=== PATIENT | female | born 1990 | race Caucasian/White ===

== ENCOUNTER 2017-04-26 07:10 | Emergency (ER) | payer SELFPAY ==
[2017-04-26 07:25] VITALS: BP 112/76
[2017-04-26] MEDS ORDERED: HYDROmorphone 0.5 MG/0.5 ML Syringe IVPUSH ONE (07:42)
[2017-04-26] MEDS ORDERED: Sodium Chloride 0.9% 10 ML Syringe FLUSH PRN (07:42)
[2017-04-26] MEDS ORDERED: Ondansetron 4 MG/2 ML SDV IVPUSH ONE (07:42)
[2017-04-26] MEDS ORDERED: Sodium Chloride 0.9% 1,000 ML IV SCH (07:45)
--- NOTE | 2017-04-26 07:59 | EDM.PDOC ---
ED HPI GENERAL MEDICAL PROBLEM - General Chief Complaint: Chest Pain Stated Complaint: CHEST PAIN/EARLY Time Seen by Provider: 04/26/17 07:28 Source of Information: Reports: Patient, RN Notes Reviewed - History of Present Illness INITIAL COMMENTS - FREE TEXT/NARRATIVE: 26-year-old female comes in with abdominal pain nausea vomiting. This started late last evening and this continued to the whole night. She has a lot of generalized abdominal discomfort with this with superimposed cramps. Now it is mostly dry heaves but she still does feel very nauseated. She feels weak, lightheaded dizzy, states her hands feel numb and tingly. She states she felt totally fine yesterday, no discomfort no nausea vomiting and was eating and drinking normally. She believes that she is . She apparently had a positive test last Monday just 5 days ago. She has an upcoming OB appointment. No vaginal bleeding or spotting, 2 para 0. Epigastric Pain Score (Numeric/FACES): 8 - Related Data Allergies Allergy/AdvReac Type Severity Reaction Status Date / Time codeine Allergy Hives Verified 04/26/17 07:25 Home Meds: Home Meds Vit 90/Iron Fum/Folic [ Formula] 1 tab PO DAILY 08/16/15 [ History] Past Medical History HEENT History: Reports: None Gastrointestinal History: Reports: GERD, Helicobacter Pylori, Hiatal Hernia MARKETING SERVICES COORDINATOR History: Reports: Psychiatric History: Reports: Anxiety, Depression - Past Surgical History HEENT Surgical History: Reports: Eye Surgery Social & Family History - Family History Family Medical History: Noncontributory Respiratory: Reports: None Psychiatric: Reports: Depression Dermatologic: Reports: None - Tobacco Use Smoking Status *Q: Current Every Day Smoker Years of Tobacco use: 10 Packs/Tins Daily: 0.1 Used Tobacco, but Quit: No Month Tobacco Last Used: TODAY 0400 Second Hand Smoke Exposure: Yes - Caffeine Use Caffeine Use: Reports: Coffee, Soda - Alcohol Use Days Per Week of Alcohol Use: 0 - Recreational Drug Use Recreational Drug Use: No ED ROS GENERAL - Review of Systems Review Of Systems: See Below Constitutional: Denies: Fever, Chills, Diaphoresis HEENT: Denies: Sinus Problem, Throat Pain Respiratory: Denies: Shortness of Breath, Wheezing, Pleuritic Chest Pain Cardiovascular: Denies: Chest Pain GI/Abdominal: Reports: Abdominal Pain (Generalized), Nausea, Vomiting. Denies: Diarrhea : Reports: No Symptoms Musculoskeletal: Reports: No Symptoms Skin: Reports: No Symptoms Neurological: Reports: Dizziness, Numbness, Tingling. Denies: Trouble Speaking ED EXAM, GI/ABD - Physical Exam Exam: See Below General Appearance: Alert, Anxious, Moderate Distress Eyes: Bilateral: Normal Appearance Nose: Normal Inspection Throat/Mouth: Normal Inspection, Normal Oropharynx Head: No: Facial Swelling Neck: Supple, Full Range of Motion Respiratory/Chest: No Respiratory Distress, Lungs Clear, Normal Breath Sounds Cardiovascular: Regular Rate, Rhythm GI/Abdominal Exam: Soft, Tender (Moderate diffuse tenderness). No: Guarding, Rebound Back Exam: No: CVA Tenderness (L), CVA Tenderness (R) Extremities: Normal Inspection, Normal Range of Motion. No: Pedal Edema, Leg Pain Neurological: Alert, Oriented, No Motor/Sensory Deficits Skin Exam: Warm, Dry, Normal Color EKG INTERPRETATION EKG Date: 04/26/17 Rhythm: Other (Sinus tachycardia, rate 109) P-Wave: Present QRS: Normal ST-T: Normal Course - Vital Signs Last Recorded V/S: Last Vital Signs Temp 97.4 F 04/26/17 07:21 Pulse 97 04/26/17 07:21 Resp 16 04/26/17 07:21 BP 112/76 04/26/17 07:21 Pulse Ox 100 04/26/17 07:21 - Orders/Labs/Meds Labs: Laboratory Tests 04/26/17 04/26/17 04/26/17 Range/Units 08:00 08:12 08:12 WBC 17.18 H (3.98-10.04) K/mm3 RBC 4.65 (3.98-5.22) M/mm3 Hgb 10.1 L (11.2-15.7) gm/L Hct 32.0 L (34.1-44.9) % MCV 68.8 L (79.4-94.8) fl MCH 21.7 L (25.6-32.2) pg MCHC 31.6 L (32.2-35.5) g/dl RDW Std Deviation 48.0 H (36.4-46.3) fL Plt Count 611 H (182-369) K/mm3 MPV 9.7 (9.4-12.3) fl Neut % (Auto) 91.5 H (34.0-71.1) % Lymph % (Auto) 5.2 L (19.3-51.7) % [place] % (Auto) 2.9 L (4.7-12.5) % Eos % (Auto) 0 L (0.7-5.8) Baso % (Auto) 0.2 (0.1-1.2) % Neut # (Auto) 15.71 H (1.56-6.13) K/mm3 Lymph # (Auto) 0.90 L (1.18-3.74) K/mm3 [place] # (Auto) 0.50 H (0.24-0.36) K/mm3 Eos # (Auto) 0.00 L (0.04-0.36) K/mm3 Baso # (Auto) 0.03 (0.01-0.08) K/mm3 Manual Slide Review Abnormal smear Sodium 137 (136-145) mEq/L Potassium 3.3 L (3.5-5.1) mEq/L Chloride 103 (98-107) mEq/L Carbon Dioxide 20 L (21-32) mEq/L Anion Gap 17.3 H (5-15) BUN 10 (7-18) mg/dL Creatinine 0.6 (0.55-1.02) mg/dL Est Cr Clr Drug Dosing 112.90 mL/min Estimated GFR (MDRD) > 60 (>60) mL/min BUN/Creatinine Ratio 16.7 (14-18) Glucose 113 H (74-106) mg/dL Calcium 9.2 (8.5-10.1) mg/dL Total Bilirubin 0.6 (0.2-1.0) mg/dL AST 20 (15-37) U/L ALT 31 (14-59) U/L Alkaline Phosphatase 80 (46-116) U/L Total Protein 7.9 (6.4-8.2) g/dl Albumin 4.2 (3.4-5.0) g/dl Globulin 3.7 gm/dL Albumin/Globulin Ratio 1.1 (1-2) HCG, Qual Positive H (NEGATIVE) Meds: Medications Discontinued Medications Generic Name Dose Route Start Last Admin Trade Name Freq PRN Reason Stop Dose Admin Hydromorphone HCl 0.25 mg 01/10/18 07:42 04/26/17 08:25 Dilaudid IVPUSH 04/26/17 07:43 0.25 mg ONETIME ONE Administration Sodium Chloride 1,000 mls @ 999 mls/hr 04/26/17 07:45 04/26/17 08:23 Normal Saline IV 999 mls/hr ONETIME JOHN Administration Ondansetron HCl 4 mg 04/26/17 07:42 04/26/17 08:24 Zofran IVPUSH 04/26/17 07:43 4 mg ONETIME ONE Administration Sodium Chloride 10 ml 04/26/17 07:42 04/26/17 08:27 Saline Flush FLUSH 10 ml ASDIRECTED PRN Administration Keep Vein Open - Re-Assessments/Exams Free Text/Narrative Re-Assessment/Exam: 04/26/17 10:02 Feeling much better after 1 L IV fluid, Zofran 4 mg IV, Dilaudid 0.25 mg IV. He is no longer nauseated or vomiting. Abdominal pain is about gone, she has been drinking some small amounts of fluid and so far keeping that down, she wants to go home, discharge instructions as documented Departure - Departure Time of Disposition: 10:03 Disposition: Home, Self-Care 01 Condition: Fair Clinical Impression: Abdominal pain Qualifiers: Abdominal location: generalized Qualified Code(s): R10.84 - Generalized abdominal pain Vomiting Qualifiers: Vomiting type: unspecified Vomiting Intractability: non-intractable Nausea presence: with nausea Qualified Code(s): R11.2 - Nausea with vomiting, unspecified - Discharge Information Instructions: Abdominal Pain, Adult, [id number] Referrals: PCP,None [Primary Care Provider] - Forms: ED Department Discharge Additional Instructions: Clear liquids until this midafternoon, then very careful bland diet in addition to continued clear liquids as tolerated, avoid milk and dairy products for 2 days. I'll look clinic as needed, return to ED if symptoms worsening in any way.
== END 2017-04-26 10:15 | disposition home or self-care (01) ==
LOC: JD.ED 07:10
DX: R10.84 Generalized abdominal pain (principal); R11.2 Nausea with vomiting, unspecified; F17.210 Nicotine dependence, cigarettes, uncomplicated; Z88.5 Allergy status to narcotic agent
CPT/HCPCS: 36415; 80053; 84703; 85025; 96361; 96374; 96375; 99285; J1170; J2405; J7040; J7050; 93010; 99284

== ENCOUNTER 2017-07-12 12:49 | Day surgery (SDC) | payer SELFPAY ==
[2017-07-12] MEDS ORDERED: Sodium Chloride 0.9% 1,000 ML IV ONE (13:31)
[2017-07-12] MEDS ORDERED: Famotidine 20 MG/2 ML SDV IVPUSH ONE (13:31)
[2017-07-12] MEDS ORDERED: Sodium Chloride 0.9% 10 ML Syringe FLUSH PRN (13:31)
[2017-07-12] MEDS ORDERED: Metoclopramide 10 MG/2 ML SDV IVPUSH ONE ×2 (13:31→16:42)
--- NOTE | 2017-07-12 13:39 | EDM.PDOC ---
ED HPI GENERAL MEDICAL PROBLEM - General Chief Complaint: ADMINISTRATIVE SERVICES MANAGER Problem Stated Complaint: 16 WEEKS PREG ABDOMINAL PAIN Time Seen by Provider: 07/12/17 13:14 Source of Information: Reports: Patient History Limitations: Reports: No Limitations - History of Present Illness INITIAL COMMENTS - FREE TEXT/NARRATIVE: 26-year-old female presents for evaluation and treatment of abdominal pain. Reports that the pain started today. States that is significant, rates as a 10 out of 10. Reports this is a constant pain. Reports associated symptoms of nausea and vomiting buts states this is not worse than normal. No fevers, chills, cough, dysuria or any vaginal bleeding. Last BM was this morning. Patient is approximately 16 weeks . She is , she reports lost her previous to a placental abruption. She sees Dr. Scruggs as her OB/ BUSINESS MANAGEMENT ANALYST. Last visit was last week. She she has had an ultrasound done thus far everything okay. She is currently on Zofran for nausea and vomiting. Last dose was at 9 AM. She is a current every day smoker. Currently smokes about 4 cigarettes per day. Treatments CORK TILE FLOOR LAYER: Reports: Other (see below) Other Treatments CORK TILE FLOOR LAYER: zofran Abdominal Pain Score (Numeric/FACES): 10 - Related Data Allergies Allergy/AdvReac Type Severity Reaction Status Date / Time codeine Allergy Hives Verified 07/12/17 17:35 pollen extracts Allergy Other Verified 07/12/17 17:35 Home Meds: Home Meds RX: Vit 90/Iron Fum/Folic [ Formula] 1 tab PO DAILY 08/16/15 [ History] Ondansetron HCl [Zofran] 4 mg PO ASDIRECTED 07/12/17 [History] Past Medical History HEENT History: Reports: None Gastrointestinal History: Reports: GERD, Helicobacter Pylori, Hiatal Hernia ADMINISTRATIVE SERVICES MANAGER History: Reports: , Other (See Below) Other OB/BYN History: placental abruption Psychiatric History: Reports: Anxiety, Depression - Past Surgical History HEENT Surgical History: Reports: Eye Surgery Social & Family History - Family History Family Medical History: Noncontributory Respiratory: Reports: None Psychiatric: Reports: Depression Dermatologic: Reports: None - Tobacco Use Smoking Status *Q: Current Every Day Smoker Years of Tobacco use: 5 Packs/Tins Daily: 0.2 Used Tobacco, but Quit: No Month/Year Tobacco Last Used: TODAY 0400 Second Hand Smoke Exposure: Yes - Caffeine Use Caffeine Use: Reports: Coffee, Soda - Alcohol Use Days Per Week of Alcohol Use: 0 - Recreational Drug Use Recreational Drug Use: No ED ROS GENERAL - Review of Systems Review Of Systems: See Below Constitutional: Reports: Decreased Appetite. Denies: Fever, Chills HEENT: Denies: Ear Pain, Throat Pain Respiratory: Denies: Cough GI/Abdominal: Reports: Abdominal Pain (generalized), Decreased Appetite, Nausea , Vomiting. Denies: Diarrhea : Reports: Other (no vaginal bleeding). Denies: Dysuria ED EXAM - Physical Exam Exam: See Below Exam Limited By: No Limitations General Appearance: Alert, WD/WN, Moderate Distress, Thin Respiratory/Chest: No Respiratory Distress, Lungs Clear, Normal Breath Sounds Cardiovascular: Normal Peripheral Pulses, Regular Rate, Rhythm, No Murmur GI/Abdominal Exam: Normal Bowel Sounds, Soft, Guarding, Tender (generalized), Other (unable to fully assess due to significant pain) Heart Tones: Present Heart Tones per Min: 147 Neurological: Alert, Oriented, Normal Cognition Psychiatric: Normal Affect, Normal Mood Skin Exam: Warm, Dry, Normal Color Course - Vital Signs Last Recorded V/S: Last Vital Signs Temp 37.0 C 07/12/17 16:45 Pulse 95 07/12/17 16:45 Resp 18 07/12/17 17:29 BP 111/72 07/12/17 16:45 Pulse Ox 100 07/12/17 17:29 - Orders/Labs/Meds Orders: Active Orders 24 hr Category Date Time Status Heart Tones [RC] ASDIRECTED Care 07/12/17 13:31 Active Peripheral IV Care [RC] . DIRECTED Care 07/12/17 13:33 Active UA W/MICROSCOPIC [URIN] Stat Lab 07/12/17 15:50 Ordered Sodium Chloride 0.9% [Saline Flush] Med 07/12/17 13:31 Active 10 ml FLUSH ASDIRECTED PRN Peripheral IV Insertion Adult [OM.PC] Routine Oth 07/12/17 13:31 Ordered Schedule Procedure [COMM] Stat Oth 07/12/17 17:36 Ordered Medication Orders Sodium Chloride (Saline Flush) 10 ml FLUSH ASDIRECTED PRN PRN Reason: Keep Vein Open Last Admin: 07/12/17 14:10 Dose: 10 ml Labs: Laboratory Tests 07/12/17 07/12/17 07/12/17 Range/Units 13:10 13:10 13:10 WBC 19.28 H (3.98-10.04) K/mm3 RBC 4.64 (3.98-5.22) M/mm3 Hgb 10.9 L (11.2-15.7) gm/L Hct 33.6 L (34.1-44.9) % MCV 72.4 L (79.4-94.8) fl MCH 23.5 L (25.6-32.2) pg MCHC 32.4 (32.2-35.5) g/dl RDW Std Deviation 52.0 H (36.4-46.3) fL Plt Count 504 H (182-369) K/mm3 MPV 9.6 (9.4-12.3) fl Neut % (Auto) 86.7 H (34.0-71.1) % Lymph % (Auto) 7.5 L (19.3-51.7) % Carbon % (Auto) 5.2 (4.7-12.5) % Eos % (Auto) 0.2 L (0.7-5.8) Baso % (Auto) 0.1 (0.1-1.2) % Neut # (Auto) 16.71 H (1.56-6.13) K/mm3 Lymph # (Auto) 1.45 (1.18-3.74) K/mm3 Carbon # (Auto) 1.01 H (0.24-0.36) K/mm3 Eos # (Auto) 0.04 (0.04-0.36) K/mm3 Baso # (Auto) 0.02 (0.01-0.08) K/mm3 Manual Slide Review Abnormal smear Sodium 135 L (136-145) mEq/L Potassium 3.0 L (3.5-5.1) mEq/L Chloride 100 (98-107) mEq/L Carbon Dioxide 21 (21-32) mEq/L Anion Gap 17.0 H (5-15) BUN 9 (7-18) mg/dL Creatinine 0.5 L (0.55-1.02) mg/dL Est Cr Clr Drug Dosing 136.71 mL/min Estimated GFR (MDRD) > 60 (>60) mL/min BUN/Creatinine Ratio 18.0 (14-18) Glucose 93 (74-106) mg/dL Calcium 9.0 (8.5-10.1) mg/dL Total Bilirubin 0.3 (0.2-1.0) mg/dL AST 16 (15-37) U/L ALT 15 (14-59) U/L Alkaline Phosphatase 76 (46-116) U/L C-Reactive Protein 0.4 (<1.0) mg/dL Total Protein 7.7 (6.4-8.2) g/dl Albumin 3.7 (3.4-5.0) g/dl Globulin 4.0 gm/dL Albumin/Globulin Ratio 0.9 L (1-2) Urine Color (Yellow) Urine Appearance (Clear) Urine pH (5.0-8.0) Ur Specific [place] (1.005-1.030) Urine Protein (Negative) Urine Glucose (UA) (Negative) Urine Ketones (Negative) Urine Occult Blood (Negative) Urine Nitrite (Negative) Urine Bilirubin (Negative) Urine Urobilinogen (0.2-1.0) Ur Leukocyte Esterase (Negative) Urine RBC (0-5) /hpf Urine WBC (0-5) /hpf Ur Epithelial Cells (0-5) /hpf Amorphous Sediment (NOT SEEN) /hpf Urine Bacteria (FEW) /hpf Urine Mucus (FEW) /hpf 07/12/17 Range/Units 15:50 WBC (3.98-10.04) K/mm3 RBC (3.98-5.22) M/mm3 Hgb (11.2-15.7) gm/L Hct (34.1-44.9) % MCV (79.4-94.8) fl MCH (25.6-32.2) pg MCHC (32.2-35.5) g/dl RDW Std Deviation (36.4-46.3) fL Plt Count (182-369) K/mm3 MPV (9.4-12.3) fl Neut % (Auto) (34.0-71.1) % Lymph % (Auto) (19.3-51.7) % Carbon % (Auto) (4.7-12.5) % Eos % (Auto) (0.7-5.8) Baso % (Auto) (0.1-1.2) % Neut # (Auto) (1.56-6.13) K/mm3 Lymph # (Auto) (1.18-3.74) K/mm3 Carbon # (Auto) (0.24-0.36) K/mm3 Eos # (Auto) (0.04-0.36) K/mm3 Baso # (Auto) (0.01-0.08) K/mm3 Manual Slide Review Sodium (136-145) mEq/L Potassium (3.5-5.1) mEq/L Chloride (98-107) mEq/L Carbon Dioxide (21-32) mEq/L Anion Gap (5-15) BUN (7-18) mg/dL Creatinine (0.55-1.02) mg/dL Est Cr Clr Drug Dosing mL/min Estimated GFR (MDRD) (>60) mL/min BUN/Creatinine Ratio (14-18) Glucose (74-106) mg/dL Calcium (8.5-10.1) mg/dL Total Bilirubin (0.2-1.0) mg/dL AST (15-37) U/L ALT (14-59) U/L Alkaline Phosphatase (46-116) U/L C-Reactive Protein (<1.0) mg/dL Total Protein (6.4-8.2) g/dl Albumin (3.4-5.0) g/dl Globulin gm/dL Albumin/Globulin Ratio (1-2) Urine Color Yellow (Yellow) Urine Appearance Slt cloudy H (Clear) Urine pH 7.0 (5.0-8.0) Ur Specific [place] 1.025 (1.005-1.030) Urine Protein 1+ H (Negative) Urine Glucose (UA) Negative (Negative) Urine Ketones 3+ H (Negative) Urine Occult Blood Negative (Negative) Urine Nitrite Negative (Negative) Urine Bilirubin Negative (Negative) Urine Urobilinogen 0.2 (0.2-1.0) Ur Leukocyte Esterase Negative (Negative) Urine RBC Not seen (0-5) /hpf Urine WBC 0-5 (0-5) /hpf Ur Epithelial Cells 0-5 (0-5) /hpf Amorphous Sediment Many H (NOT SEEN) /hpf Urine Bacteria Few (FEW) /hpf Urine Mucus Few (FEW) /hpf Meds: Medications Generic Name Dose Route Start Last Admin Trade Name Hiram PRN Reason Stop Dose Admin Sodium Chloride 10 ml 07/12/17 13:31 07/12/17 14:10 Saline Flush FLUSH 10 ml ASDIRECTED PRN Administration Keep Vein Open Discontinued Medications Generic Name Dose Route Start Last Admin Trade Name Hiram PRN Reason Stop Dose Admin Bupivacaine HCl Confirm 07/12/17 17:14 Marcaine 0.5% Administered 07/12/17 17:15 Dose 30 ml .ROUTE .STK-MED ONE Citric Acid/Sodium Citrate 30 ml 07/12/17 17:32 Bicitra Solution PO 07/12/17 17:33 ONETIME ONE Famotidine 20 mg 07/12/17 13:31 07/12/17 14:09 Pepcid IVPUSH 07/12/17 13:32 20 mg ONETIME ONE Administration Hydromorphone HCl 0.5 mg 07/12/17 14:26 07/12/17 14:34 Dilaudid IVPUSH 07/12/17 14:27 0.5 mg ONETIME ONE Administration Hydromorphone HCl 0.5 mg 07/12/17 17:16 07/12/17 17:41 Dilaudid IVPUSH 07/12/17 17:17 0.5 mg ONETIME ONE Administration Sodium Chloride 1,000 mls @ 999 mls/hr 07/12/17 13:31 07/12/17 14:06 Normal Saline IV 07/12/17 14:31 999 mls/hr ONETIME ONE Administration Cefoxitin Sodium 1 gm/ Premix 50 mls @ 100 mls/hr 07/12/17 16:39 07/12/17 16: 52 IV 07/12/17 17:08 100 mls/hr ONETIME ONE Administration Metoclopramide HCl 5 mg 07/12/17 13:31 07/12/17 14:07 Reglan IVPUSH 07/12/17 13:32 5 mg ONETIME ONE Administration Metoclopramide HCl 5 mg 07/12/17 16:42 07/12/17 16:52 Reglan IVPUSH 07/12/17 16:43 5 mg ONETIME ONE Administration Potassium Chloride 20 meq 07/12/17 14:42 07/12/17 14:50 Klor-Con M20 PO 07/12/17 14:43 20 meq ONETIME ONE Administration - Radiology Interpretation Free Text/Narrative:: Limited obstetrical ultrasound: Multiple real-time images were obtained. Comparison: No previous study for current . Dates: LMP: ? Current ultrasound: [facility] 12/20/17, gestational age 17 weeks 0 days presentation: Mobile Placenta: Anterior with no findings of placenta previa or abruption. Amniotic fluid: DOMINIQUE 11.4 cm Measurements: BPD: 3.66 cm - 17 weeks 2 days Head circumference: 13.22 cm - 16 weeks 6 days Abdominal circumference: 11.33 cm - 17 weeks 1 day Femur length: 2.19 cm - 16 weeks 4 days Estimated weight: 172 g (0 lbs. 6 oz.), estimated weight at the 34th percentile for age by current ultrasound Heart rate: 152 BPM Cervical length: 3.0 cm Maternal ovaries: Within normal limits Impression: 1. Single intrauterine fetus currently mobile in presentation. Dates as noted above. 2. No complicating process is identified by ultrasound at this time. Limited abdominal ultrasound: Multiple real-time images of the right lower abdomen were obtained. Findings: Hypoechoic tubular structure is seen within the right lower abdomen. This measures about 1.1 cm in size and is suspicious for a dilated appendix. Impression: 1. Possible dilated appendix. Findings suggest appendicitis, please confirm that clinical findings correlate. - Re-Assessments/Exams Free Text/Narrative Re-Assessment/Exam: 07/12/17 17:48 The patient's pain resolved with the Dilaudid. I was unable to better examine the patient. She does have rebound tenderness. Identifies pain in the bilateral pelvis with radiation up into the right lower quadrant. She reports a decreased appetite. States that movement worsens her abdominal pain. I then asked ultrasound in addition to her OB ultrasound to evaluate her appendix. Ultrasound report came back concerning for appendicitis. I discussed the case with Dr. Hernandez, surgery saloonkeeper. Asked OB come and evaluate her before he takes her to the OR. Plan will be to take her to the OR for an appendectomy. Asked that we give 1 g cefoxiti. Last intake was around 7 AM. I attempted to contact the patient's ADMINISTRATIVE SERVICES MANAGER provider, Dr. Scruggs, however is unable to get a hold of them. I then discussed the case with Dr. Mckeon, OB saloonkeeper. She'll come to the ER see the patient. Departure - Departure Time of Disposition: 17:52 Disposition: DC/Tfer to Critical Access 66 Condition: Fair Clinical Impression: Appendicitis, - Discharge Information Referrals: Jethro Scruggs MD [Primary Care Provider] - Forms: ED Department Discharge Additional Instructions: Patient to be taken to the OR for an appendectomy by Dr. Hernandez. Patient has been seen and evaluated by Dr. Gibbs, OB. - My Orders Last 24 Hours: My Active Orders 07/12/17 13:31 Heart Tones [RC] ASDIRECTED Sodium Chloride 0.9% [Saline Flush] 10 ml FLUSH ASDIRECTED PRN Peripheral IV Insertion Adult [OM.PC] Routine 07/12/17 13:33 Peripheral IV Care [RC] . DIRECTED 07/12/17 15:50 UA W/MICROSCOPIC [URIN] Stat - Assessment/Plan Last 24 Hours: My Active Orders 07/12/17 13:31 Heart Tones [RC] ASDIRECTED Sodium Chloride 0.9% [Saline Flush] 10 ml FLUSH ASDIRECTED PRN Peripheral IV Insertion Adult [OM.PC] Routine 07/12/17 13:33 Peripheral IV Care [RC] . DIRECTED 07/12/17 15:50 UA W/MICROSCOPIC [URIN] Stat
[2017-07-12] MEDS ORDERED: HYDROmorphone 0.5 MG/0.5 ML SYRINGE IVPUSH ONE ×2 (14:26→17:16)
[2017-07-12] MEDS ORDERED: Potassium Chloride 20 MEQ Tab.ER PO ONE (14:42)
--- NOTE | 2017-07-12 16:15 | US ---
Limited obstetrical ultrasound: Multiple real-time images were obtained. Comparison: No previous study for current . Dates: LMP: ? Current ultrasound: [facility] 12/20/17, gestational age 17 weeks 0 days presentation: Mobile Placenta: Anterior with no findings of placenta previa or abruption. Amniotic fluid: DOMINIQUE 11.4 cm Measurements: BPD: 3.66 cm - 17 weeks 2 days Head circumference: 13.22 cm - 16 weeks 6 days Abdominal circumference: 11.33 cm - 17 weeks 1 day Femur length: 2.19 cm - 16 weeks 4 days Estimated weight: 172 g (0 lbs. 6 oz.), estimated weight at the 34th percentile for age by current ultrasound Heart rate: 152 BPM Cervical length: 3.0 cm Maternal ovaries: Within normal limits Impression: 1. Single intrauterine fetus currently mobile in presentation. Dates as noted above. 2. No complicating process is identified by ultrasound at this time. Diagnostic code #1
--- NOTE | 2017-07-12 16:17 | US ---
Limited abdominal ultrasound: Multiple real-time images of the right lower abdomen were obtained. Findings: Hypoechoic tubular structure is seen within the right lower abdomen. This measures about 1.1 cm in size and is suspicious for a dilated appendix. Impression: 1. Possible dilated appendix. Findings suggest appendicitis, please confirm that clinical findings correlate. Diagnostic code #5
[2017-07-12] MEDS ORDERED: cefOXitin 1 GM in Premix Bag 1 BAG IV ONE (16:39)
[2017-07-12] MEDS ORDERED: Bupivacaine 0.5% 30 ML SDV ONE (17:14)
--- NOTE | 2017-07-12 17:29 | PCM.PREANE ---
Preanesthetic Assessment - Anesthesia/Transfusion/Family Hx Anesthesia History: Prior Anesthesia Without Reaction Family History of Anesthesia Reaction: No Transfusion History: Prior Transfusion Without Reaction Type of Transfusion Reactions: Reports: Unknown - Review of Systems General: No Symptoms Pulmonary: No Symptoms Cardiovascular: No Symptoms Gastrointestinal: Abdominal Pain (started this am), Nausea, Vomiting (last at 1900) Other: Reports: None - Physical Assessment NPO Status Date: 07/12/17 NPO Status Time: 08:00 O2 Sat by Pulse Oximetry: 100 Respiratory Rate: 18 Vital Signs: Last Vital Signs Temp 98.6 F 07/12/17 16:45 Pulse 95 07/12/17 16:45 Resp 18 07/12/17 16:45 BP 111/72 07/12/17 16:45 Pulse Ox 100 07/12/17 16:45 Height: 5 ft 5 in Weight: 50.349 kg ASA Class: 2E Mental Status: Alert & Oriented x3 Airway Class: Mallampati = 1 Dentition: Reports: Normal Dentition Thyro-Mental Finger Breadths: 3 Mouth Opening Finger Breadths: 3 ROM/Head Extension: Full Lungs: Clear to Auscultation, Normal Respiratory Effort Cardiovascular: Regular Rate, Regular Rhythm - Lab Values: Laboratory Last Values WBC 19.28 K/mm3 (3.98-10.04) H 07/12/17 13:10 RBC 4.64 M/mm3 (3.98-5.22) 07/12/17 13:10 Hgb 10.9 gm/L (11.2-15.7) L 07/12/17 13:10 Hct 33.6 % (34.1-44.9) L 07/12/17 13:10 MCV 72.4 fl (79.4-94.8) L 07/12/17 13:10 MCH 23.5 pg (25.6-32.2) L 07/12/17 13:10 MCHC 32.4 g/dl (32.2-35.5) 07/12/17 13:10 RDW Std Deviation 52.0 fL (36.4-46.3) H 07/12/17 13:10 Plt Count 504 K/mm3 (182-369) H 07/12/17 13:10 MPV 9.6 fl (9.4-12.3) 07/12/17 13:10 Neut % (Auto) 86.7 % (34.0-71.1) H 07/12/17 13:10 Lymph % (Auto) 7.5 % (19.3-51.7) L 07/12/17 13:10 [place] % (Auto) 5.2 % (4.7-12.5) 07/12/17 13:10 Eos % (Auto) 0.2 (0.7-5.8) L 07/12/17 13:10 Baso % (Auto) 0.1 % (0.1-1.2) 07/12/17 13:10 Neut # (Auto) 16.71 K/mm3 (1.56-6.13) H 07/12/17 13:10 Lymph # (Auto) 1.45 K/mm3 (1.18-3.74) 07/12/17 13:10 [place] # (Auto) 1.01 K/mm3 (0.24-0.36) H 07/12/17 13:10 Eos # (Auto) 0.04 K/mm3 (0.04-0.36) 07/12/17 13:10 Baso # (Auto) 0.02 K/mm3 (0.01-0.08) 07/12/17 13:10 Manual Slide Review Abnormal smear 07/12/17 13:10 Sodium 135 mEq/L (136-145) L 07/12/17 13:10 Potassium 3.0 mEq/L (3.5-5.1) L 07/12/17 13:10 Chloride 100 mEq/L (98-107) 07/12/17 13:10 Carbon Dioxide 21 mEq/L (21-32) 07/12/17 13:10 Anion Gap 17.0 (5-15) H 07/12/17 13:10 BUN 9 mg/dL (7-18) 07/12/17 13:10 Creatinine 0.5 mg/dL (0.55-1.02) L 07/12/17 13:10 Est Cr Clr Drug Dosing 136.71 mL/min 07/12/17 13:10 Estimated GFR (MDRD) > 60 mL/min (>60) 07/12/17 13:10 BUN/Creatinine Ratio 18.0 (14-18) 07/12/17 13:10 Glucose 93 mg/dL (74-106) 07/12/17 13:10 Calcium 9.0 mg/dL (8.5-10.1) 07/12/17 13:10 Total Bilirubin 0.3 mg/dL (0.2-1.0) 07/12/17 13:10 AST 16 U/L (15-37) 07/12/17 13:10 ALT 15 U/L (14-59) 07/12/17 13:10 Alkaline Phosphatase 76 U/L (46-116) 07/12/17 13:10 C-Reactive Protein 0.4 mg/dL (<1.0) 07/12/17 13:10 Total Protein 7.7 g/dl (6.4-8.2) 07/12/17 13:10 Albumin 3.7 g/dl (3.4-5.0) 07/12/17 13:10 Globulin 4.0 gm/dL 07/12/17 13:10 Albumin/Globulin Ratio 0.9 (1-2) L 07/12/17 13:10 Urine Color Yellow (Yellow) 07/12/17 15:50 Urine Appearance Slt cloudy (Clear) H 07/12/17 15:50 Urine pH 7.0 (5.0-8.0) 07/12/17 15:50 Ur Specific [place] 1.025 (1.005-1.030) 07/12/17 15:50 Urine Protein 1+ (Negative) H 07/12/17 15:50 Urine Glucose (UA) Negative (Negative) 07/12/17 15:50 Urine Ketones 3+ (Negative) H 07/12/17 15:50 Urine Occult Blood Negative (Negative) 07/12/17 15:50 Urine Nitrite Negative (Negative) 07/12/17 15:50 Urine Bilirubin Negative (Negative) 07/12/17 15:50 Urine Urobilinogen 0.2 (0.2-1.0) 07/12/17 15:50 Ur Leukocyte Esterase Negative (Negative) 07/12/17 15:50 Urine RBC Not seen /hpf (0-5) 07/12/17 15:50 Urine WBC 0-5 /hpf (0-5) 07/12/17 15:50 Ur Epithelial Cells 0-5 /hpf (0-5) 07/12/17 15:50 Amorphous Sediment Many /hpf (NOT SEEN) H 07/12/17 15:50 Urine Bacteria Few /hpf (FEW) 07/12/17 15:50 Urine Mucus Few /hpf (FEW) 07/12/17 15:50 - Allergies Allergies/Adverse Reactions: Allergies Allergy/AdvReac Type Severity Reaction Status Date / Time codeine Allergy Hives Verified 07/12/17 17:09 pollen extracts Allergy Other Verified 07/12/17 17:11 - Blood Blood Available: No - Acknowledgements Anesthesia Type Planned: General Anesthesia Pt an Appropriate Candidate for the Planned Anesthesia: Yes Alternatives and Risks of Anesthesia Discussed w Pt/Guardian: Yes Pt/Guardian Understands and Agrees with Anesthesia Plan: Yes PreAnesthesia Questionnaire HEENT History: Reports: None Cardiovascular History: Reports: None Respiratory History: Reports: None Gastrointestinal History: Reports: GERD, Helicobacter Pylori, Hiatal Hernia 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: , Other (See Below) : 2 (16 weeks now) Para: 0 Other OB/BYN History: placental abruption Psychiatric History: Reports: Anxiety, Depression - Past Surgical History HEENT Surgical History: Reports: Eye Surgery Female Surgical History: Reports: Section - SUBSTANCE USE Smoking Status *Q: Current Every Day Smoker (4 cigs a day) Tobacco Use Within Last Twelve Months: Cigarettes Second Hand Smoke Exposure: Yes Days Per Week of Alcohol Use: 0 Recreational Drug Use History: No - HOME MEDS Home Medications: Home Meds Vit 90/Iron Fum/Folic [ Formula] 1 tab PO DAILY 08/16/15 [ History] Ondansetron HCl [Zofran] 4 mg PO ASDIRECTED 07/12/17 [History] - CURRENT (IN HOUSE) MEDS Current Meds: Current Medications Sodium Chloride (Saline Flush) 10 ml FLUSH ASDIRECTED PRN PRN Reason: Keep Vein Open Last Admin: 07/12/17 14:10 Dose: 10 ml Discontinued Medications Famotidine (Pepcid) 20 mg IVPUSH ONETIME ONE Stop: 07/12/17 13:32 Last Admin: 07/12/17 14:09 Dose: 20 mg Hydromorphone HCl (Dilaudid) 0.5 mg IVPUSH ONETIME ONE Stop: 07/12/17 14:27 Last Admin: 07/12/17 14:34 Dose: 0.5 mg Hydromorphone HCl (Dilaudid) 0.5 mg IVPUSH ONETIME ONE Stop: 07/12/17 17:17 Sodium Chloride (Normal Saline) 1,000 mls @ 999 mls/hr IV ONETIME ONE Stop: 07/12/17 14:31 Last Admin: 07/12/17 14:06 Dose: 999 mls/hr Cefoxitin Sodium 1 gm/ Premix 50 mls @ 100 mls/hr IV ONETIME ONE Stop: 07/12/17 17:08 Last Admin: 07/12/17 16:52 Dose: 100 mls/hr Metoclopramide HCl (Reglan) 5 mg IVPUSH ONETIME ONE Stop: 07/12/17 13:32 Last Admin: 07/12/17 14:07 Dose: 5 mg Metoclopramide HCl (Reglan) 5 mg IVPUSH ONETIME ONE Stop: 07/12/17 16:43 Last Admin: 07/12/17 16:52 Dose: 5 mg Potassium Chloride (Klor-Con M20) 20 meq PO ONETIME ONE Stop: 07/12/17 14:43 Last Admin: 07/12/17 14:50 Dose: 20 meq
--- NOTE | 2017-07-12 17:31 | PCM.LDHP ---
L&D History of Present Illness - General Date of Service: 07/12/17 Admit Problem/Dx: Admission Diagnosis/Problem Admission Diagnosis/Problem Source of Information: Patient History Limitations: Reports: Other (recent dilaudid) - History of Present Illness Introduction:: 26 year old at 16w0 by LMP c/w first trimester ultrasound presents complaining of abdominal pain. She noted this started this morning. Some nausea and decreased appetite. PNC with Dr. Scruggs complicated by Anxiety, tobacco use, prior placenta abruption at 31 weeks with loss - Related Data Allergies/Adverse Reactions: Allergies Allergy/AdvReac Type Severity Reaction Status Date / Time codeine Allergy Hives Verified 07/12/17 17:09 pollen extracts Allergy Other Verified 07/12/17 17:11 Home Medications: Home Meds Vit 90/Iron Fum/Folic [ Formula] 1 tab PO DAILY 08/16/15 [ History] Ondansetron HCl [Zofran] 4 mg PO ASDIRECTED 07/12/17 [History] Past Medical History HEENT History: Reports: None Gastrointestinal History: Reports: GERD, Helicobacter Pylori, Hiatal Hernia [employer]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: , 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 (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) Other OB/BYN History: placental abruption Psychiatric History: Reports: Anxiety, Depression - Past Surgical History HEENT Surgical History: Reports: Eye Surgery Social & Family History - Family History Family Medical History: Noncontributory Respiratory: Reports: None Psychiatric: Reports: Depression Dermatologic: Reports: None - Tobacco Use Smoking Status *Q: Current Every Day Smoker Years of Tobacco use: 5 Packs/Tins Daily: 0.2 Used Tobacco, but Quit: No Month/Year Tobacco Last Used: TODAY 0400 Second Hand Smoke Exposure: Yes - Caffeine Use Caffeine Use: Reports: Coffee, Soda - Alcohol Use Days Per Week of Alcohol Use: 0 - Recreational Drug Use Recreational Drug Use: No H&P Review of Systems - Review of Systems: Review Of Systems: See Below General: Reports: Decreased Appetite. Denies: Fever HEENT: Reports: No Symptoms Pulmonary: Reports: No Symptoms Cardiovascular: Reports: No Symptoms Gastrointestinal: Reports: No Symptoms Genitourinary: Reports: No Symptoms Musculoskeletal: Reports: No Symptoms Skin: Reports: No Symptoms Psychiatric: Reports: No Symptoms Neurological: Reports: No Symptoms Hematologic/Lymphatic: Reports: No Symptoms Immunologic: Reports: No Symptoms L&D Exam - Exam Exam: See Below - Vital Signs Vital Signs: Last Vital Signs Temp 37.0 C 07/12/17 16:45 Pulse 95 07/12/17 16:45 Resp 18 07/12/17 16:45 BP 111/72 07/12/17 16:45 Pulse Ox 100 07/12/17 16:45 Weight: 50.349 kg - Exam General: Alert, Oriented HEENT: PERRLA, Conjunctiva Clear, EACs Clear, EOMI, Hearing Intact, Mucosa Moist & [place], Nares Patent, Normal Nasal Septum, Posterior Pharynx Clear, TMs Clear Neck: Supple Lungs: Clear to Auscultation, Normal Respiratory Effort Cardiovascular: Regular Rate, Regular Rhythm GI/Abdominal Exam: Soft (gravid), No Abnormal Bruit, Guarding, Rebound, Tender Back Exam: Normal Inspection, Full Range of Motion Extremities: Normal Inspection, Normal Range of Motion, Non-Tender, No Pedal Edema, Normal Capillary Refill Skin: Warm, Dry, Intact Neurological: Cranial Nerves Intact, Reflexes Equal Bilateral Psychiatric: Alert, Normal Affect, Normal Mood - Patient Data Lab Results Last 24 hrs: Laboratory Results - last 24 hr 07/12/17 07/12/17 07/12/17 Range/Units 13:10 13:10 13:10 WBC 19.28 H (3.98-10.04) K/mm3 RBC 4.64 (3.98-5.22) M/mm3 Hgb 10.9 L (11.2-15.7) gm/L Hct 33.6 L (34.1-44.9) % MCV 72.4 L (79.4-94.8) fl MCH 23.5 L (25.6-32.2) pg MCHC 32.4 (32.2-35.5) g/dl RDW Std Deviation 52.0 H (36.4-46.3) fL Plt Count 504 H (182-369) K/mm3 MPV 9.6 (9.4-12.3) fl Neut % (Auto) 86.7 H (34.0-71.1) % Lymph % (Auto) 7.5 L (19.3-51.7) % [place] % (Auto) 5.2 (4.7-12.5) % Eos % (Auto) 0.2 L (0.7-5.8) Baso % (Auto) 0.1 (0.1-1.2) % Neut # (Auto) 16.71 H (1.56-6.13) K/mm3 Lymph # (Auto) 1.45 (1.18-3.74) K/mm3 [place] # (Auto) 1.01 H (0.24-0.36) K/mm3 Eos # (Auto) 0.04 (0.04-0.36) K/mm3 Baso # (Auto) 0.02 (0.01-0.08) K/mm3 Manual Slide Review Abnormal smear Sodium 135 L (136-145) mEq/L Potassium 3.0 L (3.5-5.1) mEq/L Chloride 100 (98-107) mEq/L Carbon Dioxide 21 (21-32) mEq/L Anion Gap 17.0 H (5-15) BUN 9 (7-18) mg/dL Creatinine 0.5 L (0.55-1.02) mg/dL Est Cr Clr Drug Dosing 136.71 mL/min Estimated GFR (MDRD) > 60 (>60) mL/min BUN/Creatinine Ratio 18.0 (14-18) Glucose 93 (74-106) mg/dL Calcium 9.0 (8.5-10.1) mg/dL Total Bilirubin 0.3 (0.2-1.0) mg/dL AST 16 (15-37) U/L ALT 15 (14-59) U/L Alkaline Phosphatase 76 (46-116) U/L C-Reactive Protein 0.4 (<1.0) mg/dL Total Protein 7.7 (6.4-8.2) g/dl Albumin 3.7 (3.4-5.0) g/dl Globulin 4.0 gm/dL Albumin/Globulin Ratio 0.9 L (1-2) Urine Color (Yellow) Urine Appearance (Clear) Urine pH (5.0-8.0) Ur Specific [place] (1.005-1.030) Urine Protein (Negative) Urine Glucose (UA) (Negative) Urine Ketones (Negative) Urine Occult Blood (Negative) Urine Nitrite (Negative) Urine Bilirubin (Negative) Urine Urobilinogen (0.2-1.0) Ur Leukocyte Esterase (Negative) Urine RBC (0-5) /hpf Urine WBC (0-5) /hpf Ur Epithelial Cells (0-5) /hpf Amorphous Sediment (NOT SEEN) /hpf Urine Bacteria (FEW) /hpf Urine Mucus (FEW) /hpf 07/12/17 Range/Units 15:50 WBC (3.98-10.04) K/mm3 RBC (3.98-5.22) M/mm3 Hgb (11.2-15.7) gm/L Hct (34.1-44.9) % MCV (79.4-94.8) fl MCH (25.6-32.2) pg MCHC (32.2-35.5) g/dl RDW Std Deviation (36.4-46.3) fL Plt Count (182-369) K/mm3 MPV (9.4-12.3) fl Neut % (Auto) (34.0-71.1) % Lymph % (Auto) (19.3-51.7) % [place] % (Auto) (4.7-12.5) % Eos % (Auto) (0.7-5.8) Baso % (Auto) (0.1-1.2) % Neut # (Auto) (1.56-6.13) K/mm3 Lymph # (Auto) (1.18-3.74) K/mm3 [place] # (Auto) (0.24-0.36) K/mm3 Eos # (Auto) (0.04-0.36) K/mm3 Baso # (Auto) (0.01-0.08) K/mm3 Manual Slide Review Sodium (136-145) mEq/L Potassium (3.5-5.1) mEq/L Chloride (98-107) mEq/L Carbon Dioxide (21-32) mEq/L Anion Gap (5-15) BUN (7-18) mg/dL Creatinine (0.55-1.02) mg/dL Est Cr Clr Drug Dosing mL/min Estimated GFR (MDRD) (>60) mL/min BUN/Creatinine Ratio (14-18) Glucose (74-106) mg/dL Calcium (8.5-10.1) mg/dL Total Bilirubin (0.2-1.0) mg/dL AST (15-37) U/L ALT (14-59) U/L Alkaline Phosphatase (46-116) U/L C-Reactive Protein (<1.0) mg/dL Total Protein (6.4-8.2) g/dl Albumin (3.4-5.0) g/dl Globulin gm/dL Albumin/Globulin Ratio (1-2) Urine Color Yellow (Yellow) Urine Appearance Slt cloudy H (Clear) Urine pH 7.0 (5.0-8.0) Ur Specific [place] 1.025 (1.005-1.030) Urine Protein 1+ H (Negative) Urine Glucose (UA) Negative (Negative) Urine Ketones 3+ H (Negative) Urine Occult Blood Negative (Negative) Urine Nitrite Negative (Negative) Urine Bilirubin Negative (Negative) Urine Urobilinogen 0.2 (0.2-1.0) Ur Leukocyte Esterase Negative (Negative) Urine RBC Not seen (0-5) /hpf Urine WBC 0-5 (0-5) /hpf Ur Epithelial Cells 0-5 (0-5) /hpf Amorphous Sediment Many H (NOT SEEN) /hpf Urine Bacteria Few (FEW) /hpf Urine Mucus Few (FEW) /hpf Result Diagrams: 07/12/17 13:10 07/12/17 13:10 Problem List Initiated/Reviewed/Updated: Yes Orders Last 24hrs: Active Orders 24 hr Category Date Time Status Heart Tones [RC] ASDIRECTED Care 07/12/17 13:31 Active Peripheral IV Care [RC] . DIRECTED Care 07/12/17 13:33 Active UA W/MICROSCOPIC [URIN] Stat Lab 07/12/17 15:50 Ordered Sodium Chloride 0.9% [Saline Flush] Med 07/12/17 13:31 Active 10 ml FLUSH ASDIRECTED PRN Peripheral IV Insertion Adult [OM.PC] Routine Oth 07/12/17 13:31 Ordered Medication Orders Sodium Chloride (Saline Flush) 10 ml FLUSH ASDIRECTED PRN PRN Reason: Keep Vein Open Last Admin: 07/12/17 14:10 Dose: 10 ml Assessment/Plan Comment:: Ultrasound demonstrating appendicitis in this 26 year old at 16 weeks. OB ultrasound normal. Otherwise no issues. Dr. Hernandez will be taking to surgery for appendectomy. Will admit to ob postop for monitoring FHT postop and in am.
[2017-07-12] MEDS ORDERED: Rocuronium 50 MG/5 ML Vial ONE (17:32)
[2017-07-12] MEDS ORDERED: Lidocaine 1% 4 ML ONE (17:32)
[2017-07-12] MEDS ORDERED: Succinylcholine 200 MG/10 ML MDV ONE (17:32)
[2017-07-12] MEDS ORDERED: fentaNYL 250 MCG/5 ML SDV ONE (17:32)
[2017-07-12] MEDS ORDERED: Propofol 200 MG/20 ML SDV ONE (17:32)
[2017-07-12] MEDS ORDERED: Ondansetron 4 MG/2 ML SDV ONE (17:32)
[2017-07-12] MEDS ORDERED: Citric Acid/Sodium Citrate Solution 30 ML Cup PO ONE (17:32)
[2017-07-12] MEDS ORDERED: Lactated Ringers 1,000 ML ONE (17:36)
[2017-07-12] MEDS ORDERED: Citric Acid/Sodium Citrate Solution 30 ML Cup ONE (18:01)
[2017-07-12] MEDS ORDERED: fentaNYL 100 MCG/2 ML SDV IVPUSH PRN (18:05)
[2017-07-12] MEDS ORDERED: Ondansetron 4 MG/2 ML SDV IVPUSH PRN ×2 (18:05→18:57)
[2017-07-12] MEDS ORDERED: HYDROmorphone 0.5 MG/0.5 ML Syringe IVPUSH PRN ×2 (18:05→18:53)
[2017-07-12] MEDS ORDERED: Neostigmine Methylsulfate 10 MG/10 ML MDV ONE (18:42)
[2017-07-12] MEDS ORDERED: Glycopyrrolate 0.2 MG/ML SDV ONE (18:42)
--- NOTE | 2017-07-12 18:47 | PCM.OPNOTE ---
- General Post-Op/Procedure Note Date of Surgery/Procedure: 07/12/17 Operative Procedure(s): lap appy Pre Op Diagnosis: acute appendicitis Post-Op Diagnosis: Same Anesthesia Technique: General ET Tube Primary Surgeon: Cedrick Hernandez EBL in mLs: 0 Complications: None Condition: Good Free Text/Narrative:: Intake & Output 07/12/17 07/12/17 07/12/17 07:59 15:59 23:59 Intake Total 900 Output Total 100 Balance 800
--- NOTE | 2017-07-12 18:50 | PCM.POSTAN ---
POST ANESTHESIA ASSESSMENT - MENTAL STATUS Mental Status: Alert, Oriented - VITAL SIGNS Pulse Rate: 109 SaO2: 100 Resp Rate: 18 Blood Pressure: 120/74 Temperature: 99.4 F - RESPIRATORY Respiratory Status: Respiratory Rate WNL, Airway Patent, O2 Saturation Stable - CARDIOVASCULAR CV Status: Pulse Rate WNL, Blood Pressure Stable - GASTROINTESTINAL GI Status: No Symptoms - PAIN Pain Score: 4 (medicated) - POST OP HYDRATION Hydration Status: Adequate & Stable
[2017-07-12] MEDS ORDERED: Non-Formulary Medication 1 Each (Ondansetron Hcl 4 MG) PO SCH (19:00)
[2017-07-12] MEDS ORDERED: Lactated Ringers 1,000 ML IV SCH (19:00)
[2017-07-12] MEDS: Acetaminophen/HYDROcodone 325-5 MG Tab PO PRN (21:35)
--- NOTE | 2017-07-12 22:13 | HP ---
DATE OF ADMISSION: 07/12/2017 HISTORY OF PRESENT ILLNESS: This is a 26-year-old female, who presents to the emergency room with pain in the right lower quadrant. Ultrasound was performed showing a thickened appendix. Her symptoms began this morning when she woke up after orange juice and noted pain in the right lower quadrant, which gradually has increased in intensity associated with nausea and loss of appetite. PAST MEDICAL HISTORY: The patient's past medical history is that of at 16 weeks. In her last 2 years ago, she had abruption of placenta and had a . The patient's medical problems are, otherwise, she is in good health. CURRENT MEDICATIONS: None. ALLERGIES: To codeine. REVIEW OF SYSTEMS: No chest pain, shortness of breath, cough, hoarseness, wheezing, fainting, weakness, numbness, or convulsions. PHYSICAL EXAMINATION: GENERAL: Reveals an alert and cooperative female. HEENT: Eyes: Her sclerae are white. Extraocular muscle motion normal. Oral cavity: Healthy mucous membranes with mouth and tongue. NECK: Supple. No nodes. No thyromegaly. Trachea midline. LUNGS: Clear. No rales, rhonchi, fremitus, or dullness. HEART: Heart tones regular rate. No S3, S4, jugular venous distention, or murmurs. ABDOMEN: Soft on the left side. On the right side, she has tenderness and guarding. EXTREMITIES: Upper and lower extremities, no angulation deformities. SKIN: Warm and dry. PSYCHIATRIC: Normal. NEUROLOGIC: No cranial nerve deficits. No sensory nerve deficit, and moves all four. ASSESSMENT: 1. Acute appendicitis. 2. 16 and 18 weeks. PLAN: To proceed with laparoscopic appendectomy. Discussed the risks and the complications, she understands, including loss of baby, and we will start antibiotics and have OB consult. The patient understands and consents. MMC[facility] /[id number]
[2017-07-13] MEDS: cefOXitin 1 GM in Premix Bag 1 BAG IV SCH ×2 (01:10→08:26)
[2017-07-13] MEDS: Acetaminophen/HYDROcodone 325-5 MG Tab PO PRN ×2 (03:24→09:54)
--- NOTE | 2017-07-13 06:11 | PCM.CONSN ---
- General Info Date of Service: 07/13/17 Functional Status: Reports: Pain Controlled - Review of Systems General: Reports: No Symptoms HEENT: Reports: No Symptoms Pulmonary: Reports: No Symptoms Cardiovascular: Reports: No Symptoms Gastrointestinal: Reports: No Symptoms Genitourinary: Reports: No Symptoms Musculoskeletal: Reports: No Symptoms Skin: Reports: No Symptoms Neurological: Reports: No Symptoms Psychiatric: Reports: No Symptoms - Patient Data Vitals - Most Recent: Last Vital Signs Temp 100.4 C H 07/12/17 19:40 Pulse 82 07/12/17 19:25 Resp 14 07/12/17 19:40 BP 108/710 H 07/12/17 19:40 Pulse Ox 99 07/12/17 19:40 Weight - Most Recent: 50.349 kg I&O - Last 24 Hours: Intake & Output 07/12/17 07/12/17 07/13/17 14:59 22:59 06:59 Intake Total 1100 Output Total 100 Balance 1000 Lab Results Last 24 Hours: Laboratory Results - last 24 hr 07/12/17 07/12/17 07/12/17 Range/Units 13:10 13:10 13:10 WBC 19.28 H (3.98-10.04) K/mm3 RBC 4.64 (3.98-5.22) M/mm3 Hgb 10.9 L (11.2-15.7) gm/L Hct 33.6 L (34.1-44.9) % MCV 72.4 L (79.4-94.8) fl MCH 23.5 L (25.6-32.2) pg MCHC 32.4 (32.2-35.5) g/dl RDW Std Deviation 52.0 H (36.4-46.3) fL Plt Count 504 H (182-369) K/mm3 MPV 9.6 (9.4-12.3) fl Neut % (Auto) 86.7 H (34.0-71.1) % Lymph % (Auto) 7.5 L (19.3-51.7) % [place] % (Auto) 5.2 (4.7-12.5) % Eos % (Auto) 0.2 L (0.7-5.8) Baso % (Auto) 0.1 (0.1-1.2) % Neut # (Auto) 16.71 H (1.56-6.13) K/mm3 Lymph # (Auto) 1.45 (1.18-3.74) K/mm3 [place] # (Auto) 1.01 H (0.24-0.36) K/mm3 Eos # (Auto) 0.04 (0.04-0.36) K/mm3 Baso # (Auto) 0.02 (0.01-0.08) K/mm3 Manual Slide Review Abnormal smear Sodium 135 L (136-145) mEq/L Potassium 3.0 L (3.5-5.1) mEq/L Chloride 100 (98-107) mEq/L Carbon Dioxide 21 (21-32) mEq/L Anion Gap 17.0 H (5-15) BUN 9 (7-18) mg/dL Creatinine 0.5 L (0.55-1.02) mg/dL Est Cr Clr Drug Dosing 136.71 mL/min Estimated GFR (MDRD) > 60 (>60) mL/min BUN/Creatinine Ratio 18.0 (14-18) Glucose 93 (74-106) mg/dL Calcium 9.0 (8.5-10.1) mg/dL Total Bilirubin 0.3 (0.2-1.0) mg/dL AST 16 (15-37) U/L ALT 15 (14-59) U/L Alkaline Phosphatase 76 (46-116) U/L C-Reactive Protein 0.4 (<1.0) mg/dL Total Protein 7.7 (6.4-8.2) g/dl Albumin 3.7 (3.4-5.0) g/dl Globulin 4.0 gm/dL Albumin/Globulin Ratio 0.9 L (1-2) Urine Color (Yellow) Urine Appearance (Clear) Urine pH (5.0-8.0) Ur Specific [place] (1.005-1.030) Urine Protein (Negative) Urine Glucose (UA) (Negative) Urine Ketones (Negative) Urine Occult Blood (Negative) Urine Nitrite (Negative) Urine Bilirubin (Negative) Urine Urobilinogen (0.2-1.0) Ur Leukocyte Esterase (Negative) Urine RBC (0-5) /hpf Urine WBC (0-5) /hpf Ur Epithelial Cells (0-5) /hpf Amorphous Sediment (NOT SEEN) /hpf Urine Bacteria (FEW) /hpf Urine Mucus (FEW) /hpf 07/12/17 Range/Units 15:50 WBC (3.98-10.04) K/mm3 RBC (3.98-5.22) M/mm3 Hgb (11.2-15.7) gm/L Hct (34.1-44.9) % MCV (79.4-94.8) fl MCH (25.6-32.2) pg MCHC (32.2-35.5) g/dl RDW Std Deviation (36.4-46.3) fL Plt Count (182-369) K/mm3 MPV (9.4-12.3) fl Neut % (Auto) (34.0-71.1) % Lymph % (Auto) (19.3-51.7) % [place] % (Auto) (4.7-12.5) % Eos % (Auto) (0.7-5.8) Baso % (Auto) (0.1-1.2) % Neut # (Auto) (1.56-6.13) K/mm3 Lymph # (Auto) (1.18-3.74) K/mm3 [place] # (Auto) (0.24-0.36) K/mm3 Eos # (Auto) (0.04-0.36) K/mm3 Baso # (Auto) (0.01-0.08) K/mm3 Manual Slide Review Sodium (136-145) mEq/L Potassium (3.5-5.1) mEq/L Chloride (98-107) mEq/L Carbon Dioxide (21-32) mEq/L Anion Gap (5-15) BUN (7-18) mg/dL Creatinine (0.55-1.02) mg/dL Est Cr Clr Drug Dosing mL/min Estimated GFR (MDRD) (>60) mL/min BUN/Creatinine Ratio (14-18) Glucose (74-106) mg/dL Calcium (8.5-10.1) mg/dL Total Bilirubin (0.2-1.0) mg/dL AST (15-37) U/L ALT (14-59) U/L Alkaline Phosphatase (46-116) U/L C-Reactive Protein (<1.0) mg/dL Total Protein (6.4-8.2) g/dl Albumin (3.4-5.0) g/dl Globulin gm/dL Albumin/Globulin Ratio (1-2) Urine Color Yellow (Yellow) Urine Appearance Slt cloudy H (Clear) Urine pH 7.0 (5.0-8.0) Ur Specific [place] 1.025 (1.005-1.030) Urine Protein 1+ H (Negative) Urine Glucose (UA) Negative (Negative) Urine Ketones 3+ H (Negative) Urine Occult Blood Negative (Negative) Urine Nitrite Negative (Negative) Urine Bilirubin Negative (Negative) Urine Urobilinogen 0.2 (0.2-1.0) Ur Leukocyte Esterase Negative (Negative) Urine RBC Not seen (0-5) /hpf Urine WBC 0-5 (0-5) /hpf Ur Epithelial Cells 0-5 (0-5) /hpf Amorphous Sediment Many H (NOT SEEN) /hpf Urine Bacteria Few (FEW) /hpf Urine Mucus Few (FEW) /hpf Med Orders - Current: Current Medications Hydrocodone Bitart/Acetaminophen (Girard 325-5 Mg) 1 tab PO Q6H PRN PRN Reason: Pain Last Admin: 07/13/17 03:24 Dose: 1 tab Fentanyl (Sublimaze) 50 mcg IVPUSH Q5M PRN PRN Reason: Pain Hydromorphone HCl (Dilaudid) 0.5 mg IVPUSH ONETIME PRN PRN Reason: Pain (severe 7-10) Hydromorphone HCl (Dilaudid) 0.5 mg IVPUSH Q2H PRN PRN Reason: Pain Cefoxitin Sodium 1 gm/ Premix 50 mls @ 100 mls/hr IV Q8H JOHN Last Admin: 07/13/17 01:10 Dose: 100 mls/hr Lactated Ringer's (Ringers, Lactated) 1,000 mls @ 75 mls/hr IV ASDIRECTED [facility] Non-Formulary Medication (Ondansetron Hcl) 4 mg PO ASDIRECTED [facility] Ondansetron HCl (Zofran) 4 mg IVPUSH ONETIME PRN PRN Reason: Nausea/Vomiting Ondansetron HCl (Zofran) 4 mg IVPUSH Q8H PRN PRN Reason: Nausea Prenat Multivit/Tyro/Iron/Folic Ac ( Plus Iron) 1 each PO DAILY [facility] Sodium Chloride (Saline Flush) 10 ml FLUSH ASDIRECTED PRN PRN Reason: Keep Vein Open Last Admin: 07/12/17 14:10 Dose: 10 ml Discontinued Medications Bupivacaine HCl (Marcaine 0.5%) Confirm Administered Dose 30 ml .ROUTE .STK-MED ONE Stop: 07/12/17 17:15 Last Admin: 07/12/17 18:02 Dose: 15 ml Citric Acid/Sodium Citrate (Bicitra Solution) 30 ml PO ONETIME ONE Stop: 07/12/17 17:33 Last Admin: 07/12/17 18:05 Dose: Not Given Famotidine (Pepcid) 20 mg IVPUSH ONETIME ONE Stop: 07/12/17 13:32 Last Admin: 07/12/17 14:09 Dose: 20 mg Hydromorphone HCl (Dilaudid) 0.5 mg IVPUSH ONETIME ONE Stop: 07/12/17 14:27 Last Admin: 07/12/17 14:34 Dose: 0.5 mg Hydromorphone HCl (Dilaudid) 0.5 mg IVPUSH ONETIME ONE Stop: 07/12/17 17:17 Last Admin: 07/12/17 17:41 Dose: 0.5 mg Sodium Chloride (Normal Saline) 1,000 mls @ 999 mls/hr IV ONETIME ONE Stop: 07/12/17 14:31 Last Admin: 07/12/17 14:06 Dose: 999 mls/hr Cefoxitin Sodium 1 gm/ Premix 50 mls @ 100 mls/hr IV ONETIME ONE Stop: 07/12/17 17:08 Last Admin: 07/12/17 16:52 Dose: 100 mls/hr Metoclopramide HCl (Reglan) 5 mg IVPUSH ONETIME ONE Stop: 07/12/17 13:32 Last Admin: 07/12/17 14:07 Dose: 5 mg Metoclopramide HCl (Reglan) 5 mg IVPUSH ONETIME ONE Stop: 07/12/17 16:43 Last Admin: 07/12/17 16:52 Dose: 5 mg Potassium Chloride (Klor-Con M20) 20 meq PO ONETIME ONE Stop: 07/12/17 14:43 Last Admin: 07/12/17 14:50 Dose: 20 meq - Exam General: Alert, Oriented HEENT: Pupils Equal, Pupils Reactive, EOMI, Mucous Membr. Moist/[place] Neck: Supple Lungs: Normal Respiratory Effort Cardiovascular: Regular Rate GI/Abdominal Exam: Normal Bowel Sounds, Soft (Female) Exam: Normal External Exam, Normal Speculum Exam, Normal Bimanual Exam Back Exam: Normal Inspection, Full Range of Motion Extremities: Normal Inspection, Normal Range of Motion, Non-Tender, No Pedal Edema, Normal Capillary Refill Wound/Incisions: Healing Well Neurological: No New Focal Deficit Psy/Mental Status: Alert, Normal Affect, Normal Mood Consult PN Assessment/Plan Procedures: Procedures ASSAY OF BLOOD/URIC ACID (11/12/15) ASSAY OF PROGESTERONE (04/27/17) ASSAY THYROID STIM HORMONE (06/29/15) BLOOD TYPING SEROLOGIC ABO (05/29/17) BLOOD TYPING SEROLOGIC RH(D) (05/29/17) CHORIONIC GONADOTROPIN ASSAY (04/26/17) CHORIONIC GONADOTROPIN TEST (04/29/17) CHYLMD TRACH DNA AMP PROBE (05/29/17) COMPLETE CBC W/AUTO DIFF WBC (05/29/17) COMPREHEN METABOLIC PANEL (04/26/17) EMERGENCY DEPT VISIT (04/26/17) EMERGENCY DEPT VISIT (08/16/15) EMERGENCY DEPT VISIT (05/28/15) F5 GENE (12/24/15) FIBRIN DEGRADATION PRODUCTS (11/12/15) FIBRINOGEN ACTIVITY (11/12/15) GLUCOSE TEST (10/26/15) HELICOBACTER PYLORI ANTIBODY (11/12/15) HEMOGLOBIN (10/26/15) HEPATITIS B SURFACE AG IA (06/29/15) HIV-1 AG W/HIV-1 & HIV-2 AB (06/29/15) HYDRATE IV INFUSION ADD-ON (04/26/17) N.GONORRHOEAE DNA AMP PROB (05/29/17) OB US >/= 14 WKS SNGL FETUS (09/07/15) PROTHROMBIN TIME (11/12/15) RBC ANTIBODY SCREEN (05/29/17) ROUTINE VENIPUNCTURE (04/29/17) RUBELLA ANTIBODY (06/29/15) SYPHILIS TEST NON-TREP QUAL (06/29/15) THER/PROPH/DIAG INJ IV PUSH (04/26/17) THROMBOPLASTIN TIME PARTIAL (11/12/15) TRANSVAGINAL US OBSTETRIC (06/04/15) TX/PRO/DX INJ NEW DRUG ADDON (04/26/17) URINALYSIS AUTO W/O SCOPE (05/29/17) URINALYSIS AUTO W/SCOPE (05/28/15) URINE CULTURE/COLONY COUNT (05/29/17) Problem List Initiated/Reviewed/Updated: Yes My Orders Last 24 Hours: Doing well post appendectomy. No complaints. FHT 138. No cramping or bleeding.
[2017-07-13 07:59] VITALS: BP 102/61
[2017-07-13] MEDS ORDERED: Prenatal Multivitamin with Calcium/Folic Acid/Iron Tab PO SCH (09:00)
--- NOTE | 2017-07-13 09:15 | PCM48HPAN ---
Post Anesthesia Note - EVALUATION WITHIN 48HRS OF ANESTHETIC Vital Signs in Normal Range: Yes Patient Participated in Evaluation: Yes Respiratory Function Stable: Yes Airway Patent: Yes Cardiovascular Function Stable: Yes Hydration Status Stable: Yes Pain Control Satisfactory: Yes Nausea and Vomiting Control Satisfactory: Yes Mental Status Recovered: Yes
--- NOTE | 2017-07-13 09:23 | OR ---
DATE OF OPERATION: 07/12/2017 SURGEON: Cedrick Hernandez MD PREOPERATIVE DIAGNOSIS: Acute appendicitis. POSTOPERATIVE DIAGNOSIS: Acute appendicitis. OPERATION PERFORMED: Laparoscopic appendectomy done under general anesthetic. ESTIMATED BLOOD LOSS: Zero mL. FINDINGS: Acute edematous appendicitis with some surface exudate. DESCRIPTION OF PROCEDURE: The patient was taken to the operating room, connected to monitoring equipment, given a general anesthetic and intubated. Antibiotics given. SCDs placed. The abdomen was prepped with chlorhexidine, prepped and draped off in a sterile fashion. 0.5% Marcaine was instilled in the skin of the subumbilical area. The incision was made in a curvilinear fashion and dissection carried down to the fascia. This was opened up and Danisha trocar placed, secured with stay sutures, pneumoperitoneum established. A 5-mm 30-degree camera was then inserted. Abdominal cavity scan showing a gravid uterus. The appendix was in the right lower quadrant was edematous and showed reaction on the surface. A 5-mm trocar placed in right upper quadrant and one in the right lower quadrant and the appendix was tented up and a window was placed at the base of the cecum. An Endo-ligator was placed through this window and fired the appendix from the attachment to the cecum and another firing of the Endo-ligator the appendix from the mesoappendix. Appendix was placed in an Endobag and removed from the abdominal cavity and the camera was then reinserted and reinflated and a small bleeder noted at the staple line. This was coagulated. Area was watched and no oozing was noted. This completed the intraabdominal portion of the procedure. The ports were removed along with the pneumoperitoneum and the fascia and the subumbilical port closed with 0 Vicryl suture in a running transverse fashion. The skin of each port closed with subdermal 4-0 Dexon suture and 0.5% Marcaine infiltrated in the skin of each port. Steri-Strips and sterile dressing placed. The patient remained stable throughout and sent to recovery room in a stable condition. ANESTHESIA: MMODAL /[id number]
== END 2017-07-13 10:20 | disposition home or self-care (01) ==
LOC: JD.ED 12:49 → JD.SDS 17:21
PROVIDERS: ATTEND Surgery
DX: O99.612 Diseases of the digestive system complicating pregnancy, second trimester (principal); K35.3 Acute appendicitis with localized peritonitis; O99.342 Other mental disorders complicating pregnancy, second trimester; F41.8 Other specified anxiety disorders; Z88.8 Allergy status to other drugs, medicaments and biological substances; J30.1 Allergic rhinitis due to pollen; Z79.899 Other long term (current) drug therapy; Z3A.16 16 weeks gestation of pregnancy; F17.210 Nicotine dependence, cigarettes, uncomplicated
CPT/HCPCS: 36415; 44970; 76705; 76815; 80053; 81001; 85025; 86140; 96361; 96365; 96375; 96376; 99285; A9270; J0330; J0694; J1170; J2405; J2710; J2765; J3010; J3490; J7040; J7050; J7120; 00840; 99284; J2704

== ENCOUNTER 2017-10-02 06:57 | Inpatient (IN) | payer SELFPAY ==
[2017-10-02] MEDS ORDERED: Nalbuphine 20 MG/ML 1 ML Syringe IVPUSH PRN (07:57)
[2017-10-02] MEDS ORDERED: Ondansetron 4 MG Tab.DIS PO PRN (07:57)
[2017-10-02] MEDS ORDERED: Sodium Chloride 0.9% 10 ML Syringe FLUSH PRN (07:57)
[2017-10-02] MEDS ORDERED: Lactated Ringers 1,000 ML IV SCH (08:00)
[2017-10-02] MEDS ORDERED: Oxytocin/Lactated Ringers 10 UNIT/1,000 ML BAG IV SCH (08:00)
[2017-10-02] MEDS ORDERED: Atropine/Diphenoxylate 0.025-2.5 MG Tab PO PRN (08:12)
[2017-10-02] MEDS ORDERED: Acetaminophen 325 MG Tab PO PRN (08:13)
[2017-10-02] MEDS: Misoprostol 100 MCG Tab VAG SCH ×5 (09:15→21:01)
--- NOTE | 2017-10-02 10:44 | PCM.PREANE ---
Preanesthetic Assessment - Procedure Proposed Procedure: LILIANA - Anesthesia/Transfusion/Family Hx Anesthesia History: Prior Anesthesia Without Reaction Family History of Anesthesia Reaction: No Transfusion History: Prior Transfusion Without Reaction Type of Transfusion Reactions: Reports: Unknown - Review of Systems General: No Symptoms Pulmonary: No Symptoms Cardiovascular: No Symptoms Gastrointestinal: Other (GERD, hiatal hernia) Neurological: No Symptoms Other: Reports: None - Physical Assessment NPO Status Date: 10/02/17 NPO Status Time: 09:00 Height: 1.68 m Weight: 52.118 kg ASA Class: 2 Mental Status: Alert & Oriented x3 Airway Class: Mallampati = 2 Dentition: Reports: Normal Dentition Thyro-Mental Finger Breadths: 3 Mouth Opening Finger Breadths: 3 ROM/Head Extension: Full Lungs: Clear to Auscultation, Normal Respiratory Effort Cardiovascular: Regular Rate, Regular Rhythm - Lab Values: Laboratory Last Values WBC 10.70 K/mm3 (3.98-10.04) H 10/02/17 10:06 RBC 4.28 M/mm3 (3.98-5.22) 10/02/17 10:06 Hgb 10.2 gm/L (11.2-15.7) L 10/02/17 10:06 Hct 32.7 % (34.1-44.9) L 10/02/17 10:06 MCV 76.4 fl (79.4-94.8) L 10/02/17 10:06 MCH 23.8 pg (25.6-32.2) L 10/02/17 10:06 MCHC 31.2 g/dl (32.2-35.5) L 10/02/17 10:06 RDW Std Deviation 54.7 fL (36.4-46.3) H 10/02/17 10:06 Plt Count 526 K/mm3 (182-369) H 10/02/17 10:06 MPV 9.9 fl (9.4-12.3) 10/02/17 10:06 - Allergies Allergies/Adverse Reactions: Allergies Allergy/AdvReac Type Severity Reaction Status Date / Time codeine Allergy Hives Verified 10/02/17 08:27 pollen extracts Allergy Other Verified 10/02/17 08:27 - Blood Blood Available: No Product(s) Available: None - Anesthesia Plan Pre-Op Medication Ordered: None - Acknowledgements Anesthesia Type Planned: Epidural Pt an Appropriate Candidate for the Planned Anesthesia: Yes Alternatives and Risks of Anesthesia Discussed w Pt/Guardian: Yes Pt/Guardian Understands and Agrees with Anesthesia Plan: Yes PreAnesthesia Questionnaire HEENT History: Reports: None Cardiovascular History: Reports: None Respiratory History: Reports: None Gastrointestinal History: Reports: GERD, Helicobacter Pylori, Hiatal Hernia [employer] History: Reports: , Other (See Below) Other OB/BYN History: placental abruption Psychiatric History: Reports: Anxiety, Depression - Past Surgical History HEENT Surgical History: Reports: Eye Surgery - HOME MEDS Home Medications: Home Meds Vit 90/Iron Fum/Folic [ Formula] 1 tab PO DAILY 08/16/15 [ History] Ondansetron HCl [Zofran] 4 mg PO ASDIRECTED 07/12/17 [History] Cephalexin [Keflex] 500 mg PO Q8H #16 cap 07/13/17 [Rx] Cephalexin [Keflex] 500 mg PO QID #16 cap 07/13/17 [Rx] Hydrocodone/Acetaminophen [Hydrocodon-Acetaminophen 5-325] 1 each PO Q8H PRN # 20 tablet 07/13/17 [Rx] Hydrocodone/Acetaminophen [Hydrocodon-Acetaminophen 5-325] 1 each PO QID PRN # 20 tablet 07/13/17 [Rx] - CURRENT (IN HOUSE) MEDS Current Meds: Current Medications Acetaminophen (Tylenol) 650 mg PO Q4H PRN PRN Reason: Fever Greater Than 101 Diphenoxylate HCl/Atropine (Lomotil 0.025-2.5 Mg) 2 tab PO BID PRN PRN Reason: Diarrhea Lactated Ringer's (Ringers, Lactated) 1,000 mls @ 100 mls/hr IV ASDIRECTED JOHN Oxytocin/Lactated Ringer's (Pitocin In Lr 10 Units/1,000 Ml) 10 unit in 1,000 mls @ 100 mls/hr IV .CONTINUOUS JOHN Misoprostol (Cytotec) 100 mcg VAG Q3HR JOHN Nalbuphine HCl (Nubain) 10 mg IVPUSH Q2H PRN PRN Reason: Pain (moderate 4-6) Ondansetron HCl (Zofran Odt) 4 mg PO Q4H PRN PRN Reason: Nausea/Vomiting Sodium Chloride (Saline Flush) 10 ml FLUSH ASDIRECTED PRN PRN Reason: Keep Vein Open
[2017-10-02] MEDS ORDERED: Ibuprofen 600 MG Tab PO PRN (14:20)
[2017-10-02] MEDS ORDERED: fentaNYL 100 MCG/2 ML SDV EPIDUR PRN (15:35)
[2017-10-02] MEDS ORDERED: diphenhydrAMINE 50 MG/ML SDV IVPUSH PRN (15:35)
[2017-10-02] MEDS ORDERED: ePHEDrine 50 MG/ML SDV IVPUSH PRN (15:35)
[2017-10-02] MEDS ORDERED: Bupivacaine/fentaNYL/NS 100 ML Bag EPIDUR SCH (15:45)
[2017-10-02] MEDS ORDERED: hydrOXYzine HCl 25 MG Tab PO ONE ×2 (16:00→16:02)
[2017-10-02] MEDS ORDERED: Bupivacaine 0.25% 10 ML SDV ONE (22:00)
--- NOTE | 2017-10-02 23:40 | PCM.LDHP ---
L&D History of Present Illness - General Date of Service: 10/02/17 Admit Problem/Dx: Patient Status Order with Admit Dx/Problem 10/02/17 08:05 Patient Status [ADT] Routine Admission Diagnosis/Problem Admission Diagnosis/Problem 10/02/17 23:32 27-6/7 week demise Source of Information: Patient History Limitations: Reports: No Limitations - History of Present Illness Introduction:: History of present illness: Diana is a 26-year-old 2 para 0100 white female who is admitted for Cytotec induction for a 27-6/7 week demise. Final LAVERN was 12/26/2017 as dated by a LMP of 03/21/2017 supported by at least 3 ultrasounds. Patient was noted on evaluation clinic last week to have no perceptible heart tones. Ultrasound confirmed demise. Fundal height at that time was 22 cm. Previous demise at 31-2/7 weeks which was delivered on 11/16/2015 by a primary section. That demise felt to be secondary to an abruption placenta. Female weighing 3 lbs. 0 oz. Child's name is Toby. 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 Certain last menstrual start 03/21/2017. Obstetric history as above. This patient was seen on a very regular basis. She is evaluated with monthly growth ultrasounds. She did decline genetic screening. She has a history of depression. She has a history of smoking approximately 1 pack per day. Has history of previous hysterotomy for delivery of a nonviable fetus. She had a normal 1 hour glucose tolerance test. 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 She had her appendix out via laparoscopy on 07/12/2017. Past medical history: 1. Seasonal allergies 2. Previous stillbirth 3. 2005 had an eye stye drained. Past surgical history 1. 2015 for nonviable 31-2/7 week demise. 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 Family history: mother had twins. One has spina bifida. A niece with sickle cell diagnosis. Grandfather with type 1 diabetes. Social history: Patient is , is Aly. She smokes approximately a pack of cigarettes per day. Reports that she does not use any drugs. Review of systems: No activity noted. No other symptoms reported. Skin: Negative Cardiovascular: No chest pain or exercise intolerance Respiratory: No infectious symptoms or shortness of breath Breasts: Changes associated with GI: Negative : Increased fundal height associated with Musculoskeletal: Negative Neurological: Negative Physical exam: On last evaluation clinic patient's blood pressure 120/78, weight was 114. heart tones not heard. Ultrasound done at that time. Weight gain did increase from pregravid weight of approximately 111. She is 5 feet 6. Previous by mass index is 16.1. In general patient is well-developed, well-nourished, grieving female in no otherwise no acute distress. Skin is warm dry without lesion patient has multiple tattoos. HEENT, neck and back within normal limits Lungs are clear. Cardiovascular exam shows regular. Breasts exam is deferred having that done first found to be normal Abdomen is mildly protuberant with fundal height at this time at 22 weeks. Genital exam shows cervix to be closed. It is very posterior. Extremities neurological exam grossly within normal limits. Pain Score: 8 - Related Data Allergies/Adverse Reactions: Allergies Allergy/AdvReac Type Severity Reaction Status Date / Time codeine Allergy Hives Verified 10/02/17 08:27 pollen extracts Allergy Other Verified 10/02/17 08:27 Home Medications: Home Meds Vit 90/Iron Fum/Folic [ Formula] 1 tab PO DAILY 08/16/15 [ History] Ondansetron HCl [Zofran] 4 mg PO ASDIRECTED 07/12/17 [History] Cephalexin [Keflex] 500 mg PO Q8H #16 cap 07/13/17 [Rx] Cephalexin [Keflex] 500 mg PO QID #16 cap 07/13/17 [Rx] Hydrocodone/Acetaminophen [Hydrocodon-Acetaminophen 5-325] 1 each PO Q8H PRN # 20 tablet 07/13/17 [Rx] Hydrocodone/Acetaminophen [Hydrocodon-Acetaminophen 5-325] 1 each PO QID PRN # 20 tablet 07/13/17 [Rx] Past Medical History HEENT History: Reports: None Cardiovascular History: Reports: None Respiratory History: Reports: None Gastrointestinal History: Reports: GERD, Helicobacter Pylori, Hiatal Hernia UT[employer] WORK[employer] History: Reports: , Other (See Below) Other OB/BYN History: placental abruption Psychiatric History: Reports: Anxiety, Depression - Past Surgical History HEENT Surgical History: Reports: Eye Surgery Social & Family History - Family History Family Medical History: Noncontributory Respiratory: Reports: None Psychiatric: Reports: Depression Dermatologic: Reports: None - Tobacco Use Smoking Status *Q: Current Every Day Smoker Years of Tobacco use: 10 Packs/Tins Daily: 1 Used Tobacco, but Quit: No Second Hand Smoke Exposure: Yes - Caffeine Use Caffeine Use: Reports: Coffee, Energy Drinks - Recreational Drug Use Recreational Drug Use: No H&P Review of Systems - Review of Systems: Review Of Systems: See Below L&D Exam - Exam Exam: See Below - Vital Signs Vital Signs: Last Vital Signs Temp 36.6 C 10/02/17 07:46 Pulse 85 10/02/17 07:46 Resp 15 10/02/17 07:46 BP 114/86 10/02/17 07:46 Pulse Ox 100 10/02/17 07:46 Weight: 52.118 kg - Patient Data Lab Results Last 24 hrs: Laboratory Results - last 24 hr 10/02/17 Range/Units 10:06 WBC 10.70 H (3.98-10.04) K/mm3 RBC 4.28 (3.98-5.22) M/mm3 Hgb 10.2 L (11.2-15.7) gm/L Hct 32.7 L (34.1-44.9) % MCV 76.4 L (79.4-94.8) fl MCH 23.8 L (25.6-32.2) pg MCHC 31.2 L (32.2-35.5) g/dl RDW Std Deviation 54.7 H (36.4-46.3) fL Plt Count 526 H (182-369) K/mm3 MPV 9.9 (9.4-12.3) fl Result Diagrams: 10/02/17 10:06 Problem List Initiated/Reviewed/Updated: Yes Orders Last 24hrs: Active Orders 24 hr Category Date Time Status Patient Status Manage Transfer [TRANSFER] Routine ADT 10/02/17 23:28 Ordered Patient Status [ADT] Routine ADT 10/02/17 08:05 Active Activity as Tolerated [RC] PFP Care 10/02/17 08:05 Active Notify Provider [RC] PFP Care 10/02/17 08:05 Active Notify Provider [RC] PRN Care 10/02/17 08:05 Active Peripheral IV Care [RC] . DIRECTED Care 10/02/17 08:05 Active Verify Patient Consent Obtain [RC] ASDIRECTED Care 10/02/17 08:14 Active Vital Signs [RC] PER UNIT ROUTINE Care 10/02/17 08:05 Active Regular Diet [DIET] Diet 10/02/17 Lunch Active Acetaminophen [Tylenol] Med 10/02/17 08:13 Active 650 mg PO Q4H PRN Atropine/Diphenoxylate [Lomotil 0.025-2.5 MG] Med 10/02/17 08:12 Active 2 tab PO BID PRN Bupivacaine/fentaNYL/NS [fentaNYL/Bupivacaine/NS 2 MCG- Med 10/02/17 15:45 Active 0.125% 100 ML] 100 ml EPIDUR ASDIRECTED Ibuprofen [Motrin] Med 10/02/17 14:20 Active 600 mg PO Q4H PRN Lactated Ringers [Ringers, Lactated] 1,000 ml Med 10/02/17 08:00 Active IV ASDIRECTED Misoprostol [Cytotec] Med 10/02/17 09:00 Active 100 mcg VAG Q3HR Nalbuphine [Nubain] Med 10/02/17 07:57 Active 10 mg IVPUSH Q2H PRN Ondansetron [Zofran ODT] Med 10/02/17 07:57 Active 4 mg PO Q4H PRN Oxytocin/Lactated Ringers [Pitocin in LR 10 Units/1,000 Med 10/02/17 08:00 Active ML] 10 unit in 1,000 ml IV .CONTINUOUS Sodium Chloride 0.9% [Saline Flush] Med 10/02/17 07:57 Active 10 ml FLUSH ASDIRECTED PRN diphenhydrAMINE [Benadryl] Med 10/02/17 15:35 Active 25 mg IVPUSH Q6H PRN ePHEDrine [ePHEDrine Sulfate] Med 10/02/17 15:35 Active 5 mg IVPUSH ASDIRECTED PRN fentaNYL [Sublimaze] Med 10/02/17 15:35 Active 100 mcg EPIDUR Q3H PRN Peripheral IV Insertion Adult [OM.PC] Routine Oth 10/02/17 08:05 Ordered Resuscitation Status Routine Resus Stat 10/02/17 07:57 Ordered Medication Orders Acetaminophen (Tylenol) 650 mg PO Q4H PRN PRN Reason: Fever Greater Than 101 Diphenhydramine HCl (Benadryl) 25 mg IVPUSH Q6H PRN PRN Reason: Pruritis Diphenoxylate HCl/Atropine (Lomotil 0.025-2.5 Mg) 2 tab PO BID PRN PRN Reason: Diarrhea Ephedrine Sulfate (Ephedrine Sulfate) 5 mg IVPUSH ASDIRECTED PRN PRN Reason: Hypotension Fentanyl (Sublimaze) 100 mcg EPIDUR Q3H PRN PRN Reason: Pain Last Admin: 10/02/17 17:06 Dose: 100 mcg Fentanyl/Bupivacaine HCl (Fentanyl/Bupivacaine/Ns 2 Mcg-0.125% 100 Ml) 100 ml EPIDUR ASDIRECTED JOHN Last Admin: 10/02/17 17:07 Dose: 100 ml Lactated Ringer's (Ringers, Lactated) 1,000 mls @ 100 mls/hr IV ASDIRECTED [facility] Last Admin: 10/02/17 16:15 Dose: 100 mls/hr Oxytocin/Lactated Ringer's (Pitocin In Lr 10 Units/1,000 Ml) 10 unit in 1,000 mls @ 100 mls/hr IV .CONTINUOUS JOHN Ibuprofen (Motrin) 600 mg PO Q4H PRN PRN Reason: Pain (moderate 4-6) Last Admin: 10/02/17 14:39 Dose: 600 mg Misoprostol (Cytotec) 100 mcg VAG Q3HR [facility] Last Admin: 10/02/17 21:01 Dose: 100 mcg Admin: 10/02/17 18:34 Dose: 100 mcg Admin: 10/02/17 15:36 Dose: 100 mcg Admin: 10/02/17 12:30 Dose: 100 mcg Admin: 10/02/17 09:15 Dose: 100 mcg Nalbuphine HCl (Nubain) 10 mg IVPUSH Q2H PRN PRN Reason: Pain (moderate 4-6) Last Admin: 10/02/17 21:19 Dose: 10 mg Ondansetron HCl (Zofran Odt) 4 mg PO Q4H PRN PRN Reason: Nausea/Vomiting Last Admin: 10/02/17 16:06 Dose: 4 mg Sodium Chloride (Saline Flush) 10 ml FLUSH ASDIRECTED PRN PRN Reason: Keep Vein Open Assessment/Plan Comment:: 1. 27 6/7 week demiseetiology uncertain 2. History of 31-2/7 week demise felt to be secondary to abruption of placentatreated with hysterotomy in 2016 3. History of smoking. Remote history of drug use 4. Desires evaluation to determine if potential genetic evaluation present. She is advised this might entail obtaining a muscle sample the baby. This gives permission to obtain this. Plan: 1. Cytotec induction. Medication, procedure, risks, benefits, anticipated length of induction, potential side effects of Cytotec all discussed with patient. She appears to understand and wish to proceed 2. We'll obtain a sample of muscle tissue for genetic evaluation 3. Obtain blood testing to evaluate for potential across including torch titer. 4. Will offer pastoral care for post delivery 5. Blood is O+. Patient is rubella immune.
--- NOTE | 2017-10-02 23:47 | PCM.SN ---
- Free Text/Narrative Note: Delivery note: Diana is a 26-year-old 2 now para 0200 white female was admitted on for elective Cytotec induction of labor for delivery of a demise. Demise at 27-2/7 weeks gestational age with an LAVERN set at 12/26/2017. Patient was administered Cytotec 100 g per vagina every 3 hours. In for Cytotec induction and for D&C prior to the initiation of therapy. Prolonged somewhat arduous labor that was accompanied by labor epidural patient delivered a nonviable, nichols, male at 2301 hrs. with Apgars of 0 and 0, a weight of 541 grams ( 1 pounds, 3.1 ounces) and a length of 12-1/2 inches. The baby delivered spontaneously. The cord was clamped 2 and the baby was placed on mom' s abdomen in a blanket. There were no significant abnormalities involving the baby or the umbilical cord which would be potential cause of the demise. Baby was noted to have bilateral club feet and showed signs of extended intrauterine demise with associated decomposition. The placenta delivered at 2307 hrs., appeared intact and complete and consistent with gestational age. It was sent for histologic and pathologic evaluation. Pitocin was given IV after delivery of the baby to facilitate increase in uterine tone and decreased bleeding. Perineum was intact. Estimated blood loss was 50 mL. Patient wished to obtain a muscle sample to assess possible genetic composition of the baby. Patient is informed of the manner of collection. Consent was signed for this. The anterior left thigh of the baby was incised approximately 1 cm and a small sample of anterior thigh muscle was removed with sharp sterile dissection. This was placed in appropriate transport medium for genetic evaluation. Appropriate paperwork was completed. Patient tolerated the delivery and the immediate period well. Be grieving appropriately.
[2017-10-03] MEDS ORDERED: Ibuprofen 600 MG Tab PO PRN (03:25)
[2017-10-03] MEDS ORDERED: Acetaminophen 325 MG Tab PO PRN (03:25)
[2017-10-03] MEDS ORDERED: Docusate Sodium 100 MG Cap PO PRN (03:25)
--- NOTE | 2017-10-03 05:54 | PCM.DCSUM1 ---
Discharge Summary - Hospital Course Free Text/Narrative:: Diana is a 26-year-old 2 now para 0200 white female was admitted on for elective Cytotec induction of labor for delivery of a demise. Demise at 27-2/7 weeks gestational age with an LAVERN set at 12/26/2017. Patient was administered Cytotec 100 g per vagina every 3 hours. In for Cytotec induction and for D&C prior to the initiation of therapy. Prolonged somewhat arduous labor that was accompanied by labor epidural patient delivered a nonviable, nichols, male infant at 2301 hrs. with Apgars of 0 and 0, a weight of 541 grams ( 1 pounds, 3.1 ounces) and a length of 12-1/2 inches. The baby delivered spontaneously. The cord was clamped 2 and the baby was placed on mom' s abdomen in a blanket. There were no significant abnormalities involving the baby or the umbilical cord which would be potential cause of the demise. Baby was noted to have bilateral club feet and showed signs of extended intrauterine demise with associated decomposition. The placenta delivered at 2307 hrs., appeared intact and complete and consistent with gestational age. It was sent for histologic and pathologic evaluation. Pitocin was given IV after delivery of the baby to facilitate increase in uterine tone and decreased bleeding. Perineum was intact. Estimated blood loss was 50 mL. Patient wished to obtain a muscle sample to assess possible genetic composition of the baby. Patient is informed of the manner of collection. Consent was signed for this. The anterior left thigh of the baby was incised approximately 1 cm and a small sample of anterior thigh muscle was removed with sharp sterile dissection. This was placed in appropriate transport medium for genetic evaluation. Appropriate paperwork was completed. Patient tolerated the delivery and the immediate period well. Be grieving appropriately. On the morning after delivery the patient is doing well emotionally and physically. Minimal vaginal bleeding noted. No significant pain noted. She is grieving appropriately. She desires to be discharged home. Diagnosis: Stroke: No - Discharge Data Discharge Date: 10/03/17 Discharge Disposition: Home, Self-Care 01 Condition: Good - Patient Instructions Diet: Regular Diet as Tolerated Activity: As Tolerated (No intercourse or tampons until bleeding resolves) Driving: Do Not Drive Notify Provider of: Fever, Increased Pain, Swelling and Redness, Nausea and/or Vomiting - Discharge Plan Home Medications: Home Meds Vit 90/Iron Fum/Folic [ Formula] 1 tab PO DAILY 08/16/15 [ History] Ondansetron HCl [Zofran] 4 mg PO ASDIRECTED 07/12/17 [History] Cephalexin [Keflex] 500 mg PO Q8H #16 cap 07/13/17 [Rx] Cephalexin [Keflex] 500 mg PO QID #16 cap 07/13/17 [Rx] Hydrocodone/Acetaminophen [Hydrocodon-Acetaminophen 5-325] 1 each PO Q8H PRN # 20 tablet 07/13/17 [Rx] Hydrocodone/Acetaminophen [Hydrocodon-Acetaminophen 5-325] 1 each PO QID PRN # 20 tablet 07/13/17 [Rx] Acetaminophen [Tylenol] 650 mg PO Q4H PRN tablet 10/03/17 [Rx] Ibuprofen [Motrin] 600 mg PO Q4H PRN tablet 10/03/17 [Rx] Referrals: Jethro Scruggs MD [Primary Care Provider] - (Return to clinicDr. Scruggs1 week) - Discharge Summary/Plan Comment DC Time >30 min.: No Discharge Summary/Plan Comment: Discharge instructions: 1. Discharge home 2. Diet, activity and follow-up discussed with patient. 3. Precautions given concern increased pain, bleeding, temperature, signs/ symptoms of DVT/PE. 4. Medications per home medication was printed, discussed with and given to the patient. 5. Return to clinic-Dr. Scruggs-[facility] in 1 weeks. Diagnosis: 27-6/7 week demise-delivered Condition: Good - Patient Data Vitals - Most Recent: Last Vital Signs Temp 36.6 C 10/02/17 07:46 Pulse 88 10/03/17 03:25 Resp 16 10/03/17 03:25 BP 111/67 10/02/17 23:34 Pulse Ox 99 10/02/17 16:30 Weight - Most Recent: 52.118 kg Lab Results - Last 24 hrs: Laboratory Results - last 24 hr 10/02/17 Range/Units 10:06 WBC 10.70 H (3.98-10.04) K/mm3 RBC 4.28 (3.98-5.22) M/mm3 Hgb 10.2 L (11.2-15.7) gm/L Hct 32.7 L (34.1-44.9) % MCV 76.4 L (79.4-94.8) fl MCH 23.8 L (25.6-32.2) pg MCHC 31.2 L (32.2-35.5) g/dl RDW Std Deviation 54.7 H (36.4-46.3) fL Plt Count 526 H (182-369) K/mm3 MPV 9.9 (9.4-12.3) fl Med Orders - Current: Current Medications Acetaminophen (Tylenol) 650 mg PO Q4H PRN PRN Reason: mild pain or fever Docusate Sodium (Colace) 100 mg PO BID PRN PRN Reason: Constipation Ibuprofen (Motrin) 600 mg PO Q4H PRN PRN Reason: Mild pain or fever Discontinued Medications Acetaminophen (Tylenol) 650 mg PO Q4H PRN PRN Reason: Fever Greater Than 101 Diphenhydramine HCl (Benadryl) 25 mg IVPUSH Q6H PRN PRN Reason: Pruritis Diphenoxylate HCl/Atropine (Lomotil 0.025-2.5 Mg) 2 tab PO BID PRN PRN Reason: Diarrhea Ephedrine Sulfate (Ephedrine Sulfate) 5 mg IVPUSH ASDIRECTED PRN PRN Reason: Hypotension Fentanyl (Sublimaze) 100 mcg EPIDUR Q3H PRN PRN Reason: Pain Last Admin: 10/02/17 17:06 Dose: 100 mcg Fentanyl/Bupivacaine HCl (Fentanyl/Bupivacaine/Ns 2 Mcg-0.125% 100 Ml) 100 ml EPIDUR ASDIRECTED [facility] Last Admin: 10/02/17 17:07 Dose: 100 ml Hydroxyzine HCl (Atarax) 25 mg PO ONETIME ONE Stop: 10/02/17 16:03 Last Admin: 10/02/17 16:09 Dose: 25 mg Lactated Ringer's (Ringers, Lactated) 1,000 mls @ 100 mls/hr IV ASDIRECTED [facility] Last Admin: 10/02/17 16:15 Dose: 100 mls/hr Oxytocin/Lactated Ringer's (Pitocin In Lr 10 Units/1,000 Ml) 10 unit in 1,000 mls @ 100 mls/hr IV .CONTINUOUS [facility] Ibuprofen (Motrin) 600 mg PO Q4H PRN PRN Reason: Pain (moderate 4-6) Last Admin: 10/02/17 14:39 Dose: 600 mg Misoprostol (Cytotec) 100 mcg VAG Q3HR JOHN Last Admin: 10/02/17 21:01 Dose: 100 mcg Nalbuphine HCl (Nubain) 10 mg IVPUSH Q2H PRN PRN Reason: Pain (moderate 4-6) Last Admin: 10/02/17 21:19 Dose: 10 mg Ondansetron HCl (Zofran Odt) 4 mg PO Q4H PRN PRN Reason: Nausea/Vomiting Last Admin: 10/02/17 16:06 Dose: 4 mg Sodium Chloride (Saline Flush) 10 ml FLUSH ASDIRECTED PRN PRN Reason: Keep Vein Open
[2017-10-03 07:08] VITALS: BP 100/61
== END 2017-10-03 08:20 | disposition home or self-care (01) | DRG 775 ==
LOC: JD.OB 06:57 → OBSVTOIN 23:28 → JD.OB 23:29
PROVIDERS: ADMIT Obstetrics & Gynecology; ATTEND Obstetrics & Gynecology
PROC: 10E0XZZ Delivery of Products of Conception, External Approach (ICD-10-PCS; principal; 2017-10-02)
PROC: 3E0S3GC Introduction of Other Therapeutic Substance into Epidural Space, Percutaneous Approach (ICD-10-PCS; 2017-10-02)
PROC: 10907ZC Drainage of Amniotic Fluid, Therapeutic from Products of Conception, Via Natural or Artificial Opening (ICD-10-PCS; 2017-10-02)
DX: O36.4XX0 Maternal care for intrauterine death, not applicable or unspecified (principal); Z37.1 Single stillbirth; Z3A.27 27 weeks gestation of pregnancy; O34.211 Maternal care for low transverse scar from previous cesarean delivery; O99.334 Smoking (tobacco) complicating childbirth; F17.210 Nicotine dependence, cigarettes, uncomplicated; Z87.59 Personal history of other complications of pregnancy, childbirth and the puerperium; Z83.2 Family history of diseases of the blood and blood-forming organs and certain disorders involving the immune mechanism
CPT/HCPCS: 36415; 51702; 59409; 85027; A9270-GY; J2300; J3010; J7120

== ENCOUNTER 2019-03-31 15:31 | Emergency (ER) | payer SELFPAY ==
[2019-03-31 16:43] VITALS: BP 118/79; PULSE 99
--- NOTE | 2019-03-31 16:48 | EDM.PDOC ---
ED HPI GENERAL MEDICAL PROBLEM - General Chief Complaint: Chest Pain Stated Complaint: BUMP ON CHEST AND PAIN IN BACK AND CHEST Time Seen by Provider: 03/31/19 16:42 Source of Information: Reports: Patient History Limitations: Reports: No Limitations - History of Present Illness INITIAL COMMENTS - FREE TEXT/NARRATIVE: Patient's unfortunate 28-year-old female who presents emergency Department today with complaint of left-sided chest pain. Patient reports that symptoms started 5 days ago and progressively worsened since. Patient reports she has tenderness at the left sternal border on the fourth to fifth intercostal space, this pain is tender to palpation worse with deep inspiration. Patient complains of a "knot" there which is actually just her rib meeting with her sternal border. Patient does not have any mass, no abscess, no cough no congestion or shortness of breath. 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: , 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 (See Below) Other STOCK WETTER History: placental abruption Psychiatric History: Reports: Anxiety, Depression - Past Surgical History HEENT Surgical History: Reports: Eye Surgery Female Surgical History: Reports: Section Social & Family History - Family History Family Medical History: Noncontributory Respiratory: Reports: None Psychiatric: Reports: Depression Dermatologic: Reports: None - Tobacco Use Smoking Status *Q: Current Every Day Smoker Years of Tobacco use: 5 Packs/Tins Daily: 0.5 - Caffeine Use Caffeine Use: Reports: None - Recreational Drug Use Recreational Drug Use: No ED ROS GENERAL - Review of Systems Review Of Systems: See Below Constitutional: Denies: Fever, Chills Respiratory: Denies: Shortness of Breath, Cough Cardiovascular: Reports: Chest Pain ED EXAM, GENERAL - Physical Exam Exam: See Below Exam Limited By: No Limitations General Appearance: Alert, WD/WN, Mild Distress Ears: Normal External Exam, Normal Canal, Hearing Grossly Normal, Normal TMs Nose: Normal Inspection, Normal Mucosa, No Blood Throat/Mouth: Normal Inspection, Normal Lips, Normal Teeth, Normal Gums, Normal Oropharynx, Normal Voice, No Airway Compromise Neck: Normal Inspection, Supple, Non-Tender, Full Range of Motion Respiratory/Chest: No Respiratory Distress, Lungs Clear, Normal Breath Sounds, No Accessory Muscle Use, Chest Non-Tender Cardiovascular: Normal Peripheral Pulses, Regular Rate, Rhythm, No Edema, No Gallop, No JVD, No Murmur, No Rub, Other (Mild tenderness at the left sternal border fourth to fifth intercostal space) GI/Abdominal: Normal Bowel Sounds, Soft, Non-Tender, No Organomegaly, No Distention, No Abnormal Bruit, No Mass Back Exam: Normal Inspection, Full Range of Motion, NT Extremities: Normal Inspection, Normal Range of Motion, Non-Tender, Normal Capillary Refill, No Pedal Edema Neurological: Alert, Oriented, CN II-XII Intact, Normal Cognition, Normal Gait, Normal Reflexes, No Motor/Sensory Deficits Skin Exam: Warm, Dry, No Rash EKG INTERPRETATION EKG Date: 03/31/19 Time: 17:00 Rhythm: NSR [place]: Normal P-Wave: Present QRS: Normal ST-T: Normal QT: Normal Course - Vital Signs Last Recorded V/S: Last Vital Signs Temp 98.4 F 03/31/19 16:41 Pulse 99 03/31/19 16:41 Resp 16 03/31/19 16:41 BP 118/79 03/31/19 16:41 Pulse Ox 99 03/31/19 16:41 - Orders/Labs/Meds Orders: Active Orders 24 hr Category Date Time Status EKG Documentation Completion [RC] ASDIRECTED Care 03/31/19 16:47 Active Chest 2V [CR] Stat Exams 03/31/19 16:46 Ordered EKG 12 Lead [EK] Stat Ther 03/31/19 16:46 Ordered - Re-Assessments/Exams Free Text/Narrative Re-Assessment/Exam: 03/31/19 17:57 Chest x-ray interpreted by me JARED Departure - Departure Time of Disposition: 17:57 Disposition: Home, Self-Care 01 Clinical Impression: Costochondritis Prescriptions: Ibuprofen [Ibu] 800 mg PO TID PRN #15 tablet PRN Reason: Pain Referrals: PCP,None [Primary Care Provider] - Forms: ED Department Discharge Additional Instructions: Home, rest, return as needed for worsening condition Sepsis Event Note - Evaluation Sepsis Screening Result: No Definite Risk - Focused Exam Vital Signs: Vital Signs Temp Pulse Resp BP Pulse Ox 03/31/19 16:41 98.4 F 99 16 118/79 99 Date Exam was Performed: 03/31/19 Time Exam was Performed: 17:57 - My Orders Last 24 Hours: My Active Orders 03/31/19 16:46 Chest 2V [CR] Stat EKG 12 Lead [EK] Stat 03/31/19 16:47 EKG Documentation Completion [RC] ASDIRECTED - Assessment/Plan Last 24 Hours: My Active Orders 03/31/19 16:46 Chest 2V [CR] Stat EKG 12 Lead [EK] Stat 03/31/19 16:47 EKG Documentation Completion [RC] ASDIRECTED
--- NOTE | 2019-03-31 18:58 | CR ---
Chest: 2 views of the chest were obtained. Comparison: Prior chest x-ray of 11/11/18. Heart size and mediastinum are within normal limits. Lungs are clear with no acute parenchymal change. Bony structures are unremarkable. Impression: 1. Nothing acute is appreciated on 2 view chest x-ray. Diagnostic code #1 This report was dictated in [place] Standard Time
== END 2019-03-31 18:14 | disposition home or self-care (01) ==
LOC: JD.ED 15:31
DX: M94.0 Chondrocostal junction syndrome [Tietze] (principal); F17.210 Nicotine dependence, cigarettes, uncomplicated; Z88.5 Allergy status to narcotic agent; Z88.0 Allergy status to penicillin; Z91.048 Other nonmedicinal substance allergy status
CPT/HCPCS: 71046; 71046-26; 93005; 93010; 99283; 99285-25